=== PATIENT | male | born 1950 | race Caucasian/White ===

== ENCOUNTER 2025-08-01 09:55 | Inpatient (IN) ==
[2025-08-01] MEDS: SODIUM CHLORIDE 0.9% 500 ML IV ONE (10:51)
[2025-08-01 11:27] LABS: Alanine Aminotransferase 12.0 U/L (7-52); Albumin Globulin Ratio 1.0 (0.9-2); Albumin Level 4.2 gm/dl (3.4-5.0); Alkaline Phosphatase 119.0 U/L (34-104); Anion Gap 8.0 (3-11); Bilirubin,Total 0.4 mg/dl (0.2-1.0); Blood Urea Nitrogen 20.0 mg/dl (6-23); Calcium 9.4 mg/dl (8.6-10.3); Carbon Dioxide 23.0 mmol/L (21-32); Chloride 108.0 mmol/L (98-107); Creatinine Clr Calc Pharmacy 71.5 ml/min; Globulin 4.1 gm/dl (2.5-4.0); Glucose 87.0 mg/dl (70-99(Fasting)); Iron 18.0 mcg/dl (35-175); Lipase 39.0 U/L (11-82); Magnesium 2.1 mg/dl (1.7-2.4); Potassium 3.9 mmol/L (3.5-5.1); Sodium 139.0 mmol/L (136-145); Total Protein 8.3 gm/dl (6.0-8.3)
--- NOTE | 2025-08-01 11:28 | Emergency Department Note ---
Impression & Plan Iron deficiency anemia, Syncope, Dizziness ED Provider Note NAME: ARASH SALAZAR Jr AGE: 75 SEX: M : 1950 ARRIVES VIA: Walk-In INFORMANT: Patient ED PROVIDER(S): Conrad Ferreira MD CHIEF COMPLAINT: Low blood counts, referred PLAN: Disposition: Admit MEDICAL DECISION MAKING: The patient is a pleasant 75-year-old gentleman with a past medical history of hypertension, hyperlipidemia, GERD, Torres's esophagus who presents to the emergency department via walk-in referred by his outpatient [facility] clinic for anemia with a hemoglobin of 5.7 on an outpatient blood work yesterday. Patient has any bloody or black stool. Patient's testing was performed due to ongoing symptoms of generalized weakness and lightheadedness with episodes of syncope. Per records the patient also had been seen in March for similar symptoms and had outpatient lab work ordered as well as Zio patch and echocardiogram but the patient did not follow-up for these tests. Patient ports he has a chronic cough for years. On evaluation the patient is fatigued appearing but no distress, afebrile with stable vital signs. Abdomen is nontender. EKG without overt acute ischemia. CXR negative for acute cardiopulmonary process per my personal preliminary review/interpretation. WBC within normal limits. H/H 6.2/22.8 stable from outpatient values. Platelets 639, nonspecific. Chemistry without metabolic acidosis. BUN is not elevated. Iron continues to be low at 18. LFTs unremarkable. HS troponin 6.9, within normal limits. Lipase is normal. UA without evidence of infection. Patient did consent for blood transfusion. Given no history of anemia patient does agree with plan for admission for further assessment. Case was discussed with Isis Maher, [facility] PAC with Dr. Toussaint, [facility] hospitalist, who will evaluate the patient for admission. Further management per admitting team. Triage Nursing notes reviewed and agree them. Prior/external medical records reviewed Vital Signs: reviewed Differential diagnosis: Infection, dehydration, metabolic abnormality, hypo/hyperglycemia, electrolyte disturbance, anemia, hypoxia, cardiac sources, intracerebral event, toxicologic, neurologic, as well as other pathologies. ER treatment provided: See below. Diagnostics interpreted by me: ECG: Normal sinus rhythm with sinus arrhythmia, 79 bpm, no ectopy, no overt ST elevation or depression, QTc 444, QRS 100. Cardiac Monitoring: An order for continuous cardiac monitoring was placed and demonstrated normal sinus rhythm, sinus arrhythmia, 79 bpm, no ectopy. Laboratory studies: See below Imaging studies: See below Consultation(s): Case was discussed with Isis Maher, [facility] PAC with Dr. Toussaint, [facility] hospitalist, who will evaluate the patient for admission. HPI: Per MDM. ROS: See above HPI for pertinent positives & negatives. A total of 10 systems reviewed and were otherwise negative. VITALS:See Below PHYSICAL EXAMINATION: GENERAL: Awake, alert, in no distress HENT: Normocephalic, atraumatic. Oropharynx with dry mucous membranes and otherwise unremarkable. EYES: Normal conjunctiva. Sclera non-icteric. NECK: Supple. No nuchal rigidity. FROM. No JVD. RESPIRATORY: Clear to auscultation. CARDIAC: Regular rate, normal rhythm. Extremities warm and well perfused. Pulses equal. ABDOMEN: Soft, non-distended. No tenderness to palpation. No rebound or guarding. No masses. MUSCULOSKELETAL: Chest examination reveals no tenderness. The back is symmetrical on inspection without obvious abnormality. There is no CVA tenderness to palpation. No joint edema. LOWER EXTREMITIES: Calves are equal size bilaterally and non-tender. No edema. No discoloration. NEURO: Normal sensorium. No sensory or motor deficits noted. SKIN: No rash or jaundice noted. ED COURSE: Critical Care: I have personally spent greater than 35 minutes of critical care time in the direct management of this patient. This includes bedside care, interpretation of diagnostic studies, and testing, discussion with consultants, patient, and family members, and other required patient management activities. This 35 minutes is in excess of all separately billable procedures. 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 Prostate cancer (10/18/15) "DIAGNOSIS: Prostate, adenocarcinoma, lissett 3 + 4, PSA 10.15, cT1c, group IIA Volume - 36.74 cc PSAD - 0.27 Status post completion of radiation therapy 03/02/2016 received 8,100 cGy" On 11/18/15 10:43 Kellyberto Nina wrote "DIAGNOSIS: Prostate, adenocarcinoma, lissett 3 + 4, PSA 10.15, cT1c, group IIA Volume - 36.74 cc PSAD - 0.27" Surgical History (Updated 08/01/25 @ 13:22 by Anabelle Maher PA-C) History of inguinal hernia repair H/O rotator cuff surgery History of total left hip replacement Family History (Updated 08/01/25 @ 13:22 by Anabelle Maher PA-C) Other Hypertension Social History Smoking Status: Never smoker Second Hand Exposure: No; Do You Dip or Chew Tobacco: No; Tobacco Cessation Education Requested by Patient: No Hx Alcohol Use: No Hx Substance Use: No Preferred Language: Kiswahili Communication Ability: Effective Worm Farmer Required: No Beliefs That Will Affect Care: None Current Living Situation: Alone Other Information That Helps Us Care for You: No Feels Safe at Home: Yes Safety Concerns: Feels Safe At This Time Assistive Devices: Denture - Upper and Denture - Lower Allergies Allergies Allergy/AdvReac Type Severity Reaction Status Date / Time No Known Allergies Allergy Unverified 11/18/15 09:18 Home Meds Home Medications Medication Instructions Recorded Confirmed amlodipine 2.5 mg tablet 2.5 mg PO DAILY 08/01/25 08/01/25 aspirin 81 mg tablet,delayed 81 mg PO DAILY 08/01/25 08/01/25 release atorvastatin 20 mg tablet 20 mg PO DAILY 08/01/25 08/01/25 famotidine 20 mg tablet 20 mg PO DAILY 08/01/25 08/01/25 fexofenadine 180 mg tablet 180 mg PO DAILY 08/01/25 08/01/25 levothyroxine 88 mcg tablet 88 mcg PO DAILY 08/01/25 08/01/25 omeprazole 40 mg capsule,delayed 40 mg PO DAILY 08/01/25 08/01/25 release Results & Data (ED) Vital Signs Vital Signs - 24 hr 08/01/25 10:10 08/01/25 10:33 08/01/25 11:00 Temperature 36.6 C Temperature Source Temporal Artery Scan Pulse Rate 83 91 H 77 Pulse Rate from SpO2 Sensor 77 Respiratory Rate 18 23 Respiratory Effort / Characteristics Non-Labored Spontaneous Respiratory Depth Normal Respiratory Pattern Regular Blood Pressure 168/77 H 119/79 Blood Pressure Mean 107 92 Blood Pressure Position Sitting Pulse Oximetry 97 90 Oxygen Delivery Method Room Air Oxygen Flow Rate Sepsis Recent Fever Within 48 Hours No Sepsis New/Unexplained Change in Mental Status N/A Sepsis Action Taken by Nursing No Action Required 08/01/25 11:30 08/01/25 12:00 08/01/25 12:30 Temperature Temperature Source Pulse Rate 68 70 76 Pulse Rate from SpO2 Sensor 67 70 80 Respiratory Rate 24 17 26 H Respiratory Effort / Characteristics Respiratory Depth Respiratory Pattern Blood Pressure 143/81 H 156/86 H 155/101 H Blood Pressure Mean 101 109 119 Blood Pressure Position Pulse Oximetry 93 95 96 Oxygen Delivery Method Oxygen Flow Rate Sepsis Recent Fever Within 48 Hours Sepsis New/Unexplained Change in Mental Status Sepsis Action Taken by Nursing 08/01/25 13:00 08/01/25 13:12 08/01/25 13:16 Temperature 37 C Temperature Source Oral Pulse Rate 75 80 84 Pulse Rate from SpO2 Sensor 75 Respiratory Rate 17 25 H 20 Respiratory Effort / Characteristics Respiratory Depth Respiratory Pattern Blood Pressure 147/89 H 149/85 H 149/85 H Blood Pressure Mean 108 106 106 Blood Pressure Position Pulse Oximetry 91 96 Oxygen Delivery Method Oxygen Flow Rate 0 Sepsis Recent Fever Within 48 Hours Sepsis New/Unexplained Change in Mental Status Sepsis Action Taken by Nursing 08/01/25 13:18 08/01/25 13:30 08/01/25 13:30 Temperature Temperature Source Pulse Rate 70 Pulse Rate from SpO2 Sensor 67 Respiratory Rate 24 Respiratory Effort / Characteristics Respiratory Depth Respiratory Pattern Blood Pressure 142/79 H 142/79 H Blood Pressure Mean 108 108 Blood Pressure Position Pulse Oximetry 95 Oxygen Delivery Method Oxygen Flow Rate Sepsis Recent Fever Within 48 Hours Sepsis New/Unexplained Change in Mental Status Sepsis Action Taken by Nursing 08/01/25 13:30 08/01/25 13:30 08/01/25 13:30 Temperature Temperature Source Pulse Rate Pulse Rate from SpO2 Sensor Respiratory Rate Respiratory Effort / Characteristics Respiratory Depth Respiratory Pattern Blood Pressure 142/79 H 142/79 H 142/79 H Blood Pressure Mean 108 108 108 Blood Pressure Position Pulse Oximetry Oxygen Delivery Method Oxygen Flow Rate Sepsis Recent Fever Within 48 Hours Sepsis New/Unexplained Change in Mental Status Sepsis Action Taken by Nursing 08/01/25 13:30 08/01/25 13:33 08/01/25 13:45 Temperature 37.0 C Temperature Source Oral Pulse Rate 75 76 Pulse Rate from SpO2 Sensor 74 Respiratory Rate 22 18 Respiratory Effort / Characteristics Respiratory Depth Respiratory Pattern Blood Pressure 161/93 H Blood Pressure Mean 119 Blood Pressure Position Sitting Pulse Oximetry 92 92 Oxygen Delivery Method Oxygen Flow Rate Sepsis Recent Fever Within 48 Hours Sepsis New/Unexplained Change in Mental Status Sepsis Action Taken by Nursing 08/01/25 13:45 08/01/25 13:45 08/01/25 13:45 Temperature Temperature Source Pulse Rate Pulse Rate from SpO2 Sensor Respiratory Rate Respiratory Effort / Characteristics Respiratory Depth Respiratory Pattern Blood Pressure 161/93 H 161/93 H 161/93 H Blood Pressure Mean 119 119 119 Blood Pressure Position Pulse Oximetry Oxygen Delivery Method Oxygen Flow Rate Sepsis Recent Fever Within 48 Hours Sepsis New/Unexplained Change in Mental Status Sepsis Action Taken by Nursing 08/01/25 13:45 08/01/25 13:45 08/01/25 13:48 Temperature 36.9 C Temperature Source Oral Pulse Rate 75 75 Pulse Rate from SpO2 Sensor 76 Respiratory Rate 19 18 Respiratory Effort / Characteristics Respiratory Depth Respiratory Pattern Blood Pressure 161/93 H 161/93 H Blood Pressure Mean 119 115 Blood Pressure Position Lying Pulse Oximetry 98 97 Oxygen Delivery Method Oxygen Flow Rate Sepsis Recent Fever Within 48 Hours Sepsis New/Unexplained Change in Mental Status Sepsis Action Taken by Nursing 08/01/25 14:00 08/01/25 14:00 08/01/25 14:00 Temperature Temperature Source Pulse Rate Pulse Rate from SpO2 Sensor Respiratory Rate Respiratory Effort / Characteristics Respiratory Depth Respiratory Pattern Blood Pressure 153/87 H 153/87 H 153/87 H Blood Pressure Mean 103 103 103 Blood Pressure Position Pulse Oximetry Oxygen Delivery Method Oxygen Flow Rate Sepsis Recent Fever Within 48 Hours Sepsis New/Unexplained Change in Mental Status Sepsis Action Taken by Nursing 08/01/25 14:00 08/01/25 14:00 08/01/25 14:00 Temperature Temperature Source Pulse Rate 73 Pulse Rate from SpO2 Sensor 73 Respiratory Rate 29 H Respiratory Effort / Characteristics Respiratory Depth Respiratory Pattern Blood Pressure 153/87 H 153/87 H Blood Pressure Mean 103 103 Blood Pressure Position Pulse Oximetry 96 Oxygen Delivery Method Oxygen Flow Rate Sepsis Recent Fever Within 48 Hours Sepsis New/Unexplained Change in Mental Status Sepsis Action Taken by Nursing Laboratory Data Attestation: I reviewed the patient's lab results. 08/01/25 19:53 08/01/25 10:20 Lab Results 08/01/25 08/01/25 08/01/25 Range/Units 10:20 10:20 10:20 WBC 6.59 6.74 (4.8-10.8) K/ul RBC 3.39 L 3.34 L (4.70-6.10) M/uL Hgb 6.2 L* (14.0-18.0) g/dL Hct (42.0-52.0) % MCV (80.0-100.0) fL MCH (25.0-34.0) pg MCHC (32.0-36.0) g/dL RDW Std Deviation (36.4-46.3) fL RDW Coeff of Miguelangel (11.5-14.5) % Plt Count (130-400) K/uL MPV (9.4-12.4) fL Immature Gran % (Auto) % Neut % (Auto) % Lymph % (Auto) % [place] % (Auto) % Eos % (Auto) % Baso % (Auto) % Neut # (Auto) (1.40-6.50) K/uL Lymph # (Auto) (1.20-3.40) K/uL [place] # (Auto) (0.11-0.59) K/uL Eos # (Auto) (0.00-0.50) K/uL Baso # (Auto) (0.00-0.20) K/uL Immature Gran # (Auto) (0.01-0.20) K/uL Polychromasia Microcytosis PT (9.0-12.0) Seconds INR (0.9-1.1) Sodium (136-145) mmol/L Potassium (3.5-5.1) mmol/L Chloride (98-107) mmol/L Carbon Dioxide (21-32) mmol/L Anion Gap (3-11) BUN (6-23) mg/dl Creatinine (0.6-1.4) mg/dl Est Cr Clr Drug Dosing ml/min eGFR BUN/Creatinine Ratio (10-20) Glucose (70-99(Fasting)) mg/dl Calcium (8.6-10.3) mg/dl Magnesium (1.7-2.4) mg/dl Iron (35-175) mcg/dl Total Bilirubin (0.2-1.0) mg/dl AST (13-39) U/L ALT (7-52) U/L Alkaline Phosphatase (34-104) U/L Lactate Dehydrogenase (86-244) U/L Troponin I High Sens (0-20) pg/ml Total Protein (6.0-8.3) gm/dl Albumin (3.4-5.0) gm/dl Globulin (2.5-4.0) gm/dl Albumin/Globulin Ratio (0.9-2) Lipase (11-82) U/L Carcinoembryonic Ag (0-2.5) ng/ml Prostate Specific Ag (0-4) ng/ml Free PSA (0-2.0) ng/ml % Free PSA % Urine Color Urine Appearance (Clear) Urine pH (4.5-7.5) Ur Specific [place]asio (1.000-1.030) Urine Protein (Negative) Urine Glucose (UA) (Negative) Urine Ketones (Negative) Urine Blood (Negative) Urine Nitrite (Negative) Urine Bilirubin (Negative) Urine Urobilinogen (Negative) Ur Leukocyte Esterase (Negative) Urine Comment Blood Type Blood Type Recheck Antibody Screen Crossmatch 08/01/25 08/01/25 08/01/25 Range/Units 10:20 10:20 10:20 WBC (4.8-10.8) K/ul RBC (4.70-6.10) M/uL Hgb 6.0 L* (14.0-18.0) g/dL Hct 22.8 L 22.7 L (42.0-52.0) % MCV 67.3 L 68.0 L (80.0-100.0) fL MCH 18.3 L (25.0-34.0) pg MCHC (32.0-36.0) g/dL RDW Std Deviation (36.4-46.3) fL RDW Coeff of Miguelangel (11.5-14.5) % Plt Count (130-400) K/uL MPV (9.4-12.4) fL Immature Gran % (Auto) % Neut % (Auto) % Lymph % (Auto) % [place] % (Auto) % Eos % (Auto) % Baso % (Auto) % Neut # (Auto) (1.40-6.50) K/uL Lymph # (Auto) (1.20-3.40) K/uL [place] # (Auto) (0.11-0.59) K/uL Eos # (Auto) (0.00-0.50) K/uL Baso # (Auto) (0.00-0.20) K/uL Immature Gran # (Auto) (0.01-0.20) K/uL Polychromasia Microcytosis PT (9.0-12.0) Seconds INR (0.9-1.1) Sodium (136-145) mmol/L Potassium (3.5-5.1) mmol/L Chloride (98-107) mmol/L Carbon Dioxide (21-32) mmol/L Anion Gap (3-11) BUN (6-23) mg/dl Creatinine (0.6-1.4) mg/dl Est Cr Clr Drug Dosing ml/min eGFR BUN/Creatinine Ratio (10-20) Glucose (70-99(Fasting)) mg/dl Calcium (8.6-10.3) mg/dl Magnesium (1.7-2.4) mg/dl Iron (35-175) mcg/dl Total Bilirubin (0.2-1.0) mg/dl AST (13-39) U/L ALT (7-52) U/L Alkaline Phosphatase (34-104) U/L Lactate Dehydrogenase (86-244) U/L Troponin I High Sens (0-20) pg/ml Total Protein (6.0-8.3) gm/dl Albumin (3.4-5.0) gm/dl Globulin (2.5-4.0) gm/dl Albumin/Globulin Ratio (0.9-2) Lipase (11-82) U/L Carcinoembryonic Ag (0-2.5) ng/ml Prostate Specific Ag (0-4) ng/ml Free PSA (0-2.0) ng/ml % Free PSA % Urine Color Urine Appearance (Clear) Urine pH (4.5-7.5) Ur Specific [place] (1.000-1.030) Urine Protein (Negative) Urine Glucose (UA) (Negative) Urine Ketones (Negative) Urine Blood (Negative) Urine Nitrite (Negative) Urine Bilirubin (Negative) Urine Urobilinogen (Negative) Ur Leukocyte Esterase (Negative) Urine Comment Blood Type Blood Type Recheck Antibody Screen Crossmatch 08/01/25 08/01/25 08/01/25 Range/Units 10:20 10:20 10:20 WBC (4.8-10.8) K/ul RBC (4.70-6.10) M/uL Hgb (14.0-18.0) g/dL Hct (42.0-52.0) % MCV (80.0-100.0) fL MCH 18.0 L (25.0-34.0) pg MCHC 27.2 L 26.4 L (32.0-36.0) g/dL RDW Std Deviation 46.1 47.0 H (36.4-46.3) fL RDW Coeff of Miguelangel 19.4 H (11.5-14.5) % Plt Count (130-400) K/uL MPV (9.4-12.4) fL Immature Gran % (Auto) % Neut % (Auto) % Lymph % (Auto) % [place] % (Auto) % Eos % (Auto) % Baso % (Auto) % Neut # (Auto) (1.40-6.50) K/uL Lymph # (Auto) (1.20-3.40) K/uL [place] # (Auto) (0.11-0.59) K/uL Eos # (Auto) (0.00-0.50) K/uL Baso # (Auto) (0.00-0.20) K/uL Immature Gran # (Auto) (0.01-0.20) K/uL Polychromasia Microcytosis PT (9.0-12.0) Seconds INR (0.9-1.1) Sodium (136-145) mmol/L Potassium (3.5-5.1) mmol/L Chloride (98-107) mmol/L Carbon Dioxide (21-32) mmol/L Anion Gap (3-11) BUN (6-23) mg/dl Creatinine (0.6-1.4) mg/dl Est Cr Clr Drug Dosing ml/min eGFR BUN/Creatinine Ratio (10-20) Glucose (70-99(Fasting)) mg/dl Calcium (8.6-10.3) mg/dl Magnesium (1.7-2.4) mg/dl Iron (35-175) mcg/dl Total Bilirubin (0.2-1.0) mg/dl AST (13-39) U/L ALT (7-52) U/L Alkaline Phosphatase (34-104) U/L Lactate Dehydrogenase (86-244) U/L Troponin I High Sens (0-20) pg/ml Total Protein (6.0-8.3) gm/dl Albumin (3.4-5.0) gm/dl Globulin (2.5-4.0) gm/dl Albumin/Globulin Ratio (0.9-2) Lipase (11-82) U/L Carcinoembryonic Ag (0-2.5) ng/ml Prostate Specific Ag (0-4) ng/ml Free PSA (0-2.0) ng/ml % Free PSA % Urine Color Urine Appearance (Clear) Urine pH (4.5-7.5) Ur Specific [place] (1.000-1.030) Urine Protein (Negative) Urine Glucose (UA) (Negative) Urine Ketones (Negative) Urine Blood (Negative) Urine Nitrite (Negative) Urine Bilirubin (Negative) Urine Urobilinogen (Negative) Ur Leukocyte Esterase (Negative) Urine Comment Blood Type Blood Type Recheck Antibody Screen Crossmatch 08/01/25 08/01/25 08/01/25 Range/Units 10:20 10:20 10:20 WBC (4.8-10.8) K/ul RBC (4.70-6.10) M/uL Hgb (14.0-18.0) g/dL Hct (42.0-52.0) % MCV (80.0-100.0) fL MCH (25.0-34.0) pg MCHC (32.0-36.0) g/dL RDW Std Deviation (36.4-46.3) fL RDW Coeff of Miguelangel 19.6 H (11.5-14.5) % Plt Count 639 H 641 H (130-400) K/uL MPV 9.1 L 9.3 L (9.4-12.4) fL Immature Gran % (Auto) 0.5 % Neut % (Auto) % Lymph % (Auto) % [place] % (Auto) % Eos % (Auto) % Baso % (Auto) % Neut # (Auto) (1.40-6.50) K/uL Lymph # (Auto) (1.20-3.40) K/uL [place] # (Auto) (0.11-0.59) K/uL Eos # (Auto) (0.00-0.50) K/uL Baso # (Auto) (0.00-0.20) K/uL Immature Gran # (Auto) (0.01-0.20) K/uL Polychromasia Microcytosis PT (9.0-12.0) Seconds INR (0.9-1.1) Sodium (136-145) mmol/L Potassium (3.5-5.1) mmol/L Chloride (98-107) mmol/L Carbon Dioxide (21-32) mmol/L Anion Gap (3-11) BUN (6-23) mg/dl Creatinine (0.6-1.4) mg/dl Est Cr Clr Drug Dosing ml/min eGFR BUN/Creatinine Ratio (10-20) Glucose (70-99(Fasting)) mg/dl Calcium (8.6-10.3) mg/dl Magnesium (1.7-2.4) mg/dl Iron (35-175) mcg/dl Total Bilirubin (0.2-1.0) mg/dl AST (13-39) U/L ALT (7-52) U/L Alkaline Phosphatase (34-104) U/L Lactate Dehydrogenase (86-244) U/L Troponin I High Sens (0-20) pg/ml Total Protein (6.0-8.3) gm/dl Albumin (3.4-5.0) gm/dl Globulin (2.5-4.0) gm/dl Albumin/Globulin Ratio (0.9-2) Lipase (11-82) U/L Carcinoembryonic Ag (0-2.5) ng/ml Prostate Specific Ag (0-4) ng/ml Free PSA (0-2.0) ng/ml % Free PSA % Urine Color Urine Appearance (Clear) Urine pH (4.5-7.5) Ur Specific [place] (1.000-1.030) Urine Protein (Negative) Urine Glucose (UA) (Negative) Urine Ketones (Negative) Urine Blood (Negative) Urine Nitrite (Negative) Urine Bilirubin (Negative) Urine Urobilinogen (Negative) Ur Leukocyte Esterase (Negative) Urine Comment Blood Type Blood Type Recheck Antibody Screen Crossmatch 08/01/25 08/01/25 08/01/25 Range/Units 10:20 10:20 10:20 WBC (4.8-10.8) K/ul RBC (4.70-6.10) M/uL Hgb (14.0-18.0) g/dL Hct (42.0-52.0) % MCV (80.0-100.0) fL MCH (25.0-34.0) pg MCHC (32.0-36.0) g/dL RDW Std Deviation (36.4-46.3) fL RDW Coeff of Miguelangel (11.5-14.5) % Plt Count (130-400) K/uL MPV (9.4-12.4) fL Immature Gran % (Auto) 0.3 % Neut % (Auto) 56.7 54.7 % Lymph % (Auto) 18.5 19.7 % [place] % (Auto) 19.6 % Eos % (Auto) % Baso % (Auto) % Neut # (Auto) (1.40-6.50) K/uL Lymph # (Auto) (1.20-3.40) K/uL [place] # (Auto) (0.11-0.59) K/uL Eos # (Auto) (0.00-0.50) K/uL Baso # (Auto) (0.00-0.20) K/uL Immature Gran # (Auto) (0.01-0.20) K/uL Polychromasia Microcytosis PT (9.0-12.0) Seconds INR (0.9-1.1) Sodium (136-145) mmol/L Potassium (3.5-5.1) mmol/L Chloride (98-107) mmol/L Carbon Dioxide (21-32) mmol/L Anion Gap (3-11) BUN (6-23) mg/dl Creatinine (0.6-1.4) mg/dl Est Cr Clr Drug Dosing ml/min eGFR BUN/Creatinine Ratio (10-20) Glucose (70-99(Fasting)) mg/dl Calcium (8.6-10.3) mg/dl Magnesium (1.7-2.4) mg/dl Iron (35-175) mcg/dl Total Bilirubin (0.2-1.0) mg/dl AST (13-39) U/L ALT (7-52) U/L Alkaline Phosphatase (34-104) U/L Lactate Dehydrogenase (86-244) U/L Troponin I High Sens (0-20) pg/ml Total Protein (6.0-8.3) gm/dl Albumin (3.4-5.0) gm/dl Globulin (2.5-4.0) gm/dl Albumin/Globulin Ratio (0.9-2) Lipase (11-82) U/L Carcinoembryonic Ag (0-2.5) ng/ml Prostate Specific Ag (0-4) ng/ml Free PSA (0-2.0) ng/ml % Free PSA % Urine Color Urine Appearance (Clear) Urine pH (4.5-7.5) Ur Specific [place]asio (1.000-1.030) Urine Protein (Negative) Urine Glucose (UA) (Negative) Urine Ketones (Negative) Urine Blood (Negative) Urine Nitrite (Negative) Urine Bilirubin (Negative) Urine Urobilinogen (Negative) Ur Leukocyte Esterase (Negative) Urine Comment Blood Type Blood Type Recheck Antibody Screen Crossmatch 08/01/25 08/01/25 08/01/25 Range/Units 10:20 10:20 10:20 WBC (4.8-10.8) K/ul RBC (4.70-6.10) M/uL Hgb (14.0-18.0) g/dL Hct (42.0-52.0) % MCV (80.0-100.0) fL MCH (25.0-34.0) pg MCHC (32.0-36.0) g/dL RDW Std Deviation (36.4-46.3) fL RDW Coeff of Miguelangel (11.5-14.5) % Plt Count (130-400) K/uL MPV (9.4-12.4) fL Immature Gran % (Auto) % Neut % (Auto) % Lymph % (Auto) % [place] % (Auto) 20.5 % Eos % (Auto) 3.8 3.6 % Baso % (Auto) 0.9 1.2 % Neut # (Auto) 3.74 (1.40-6.50) K/uL Lymph # (Auto) (1.20-3.40) K/uL [place] # (Auto) (0.11-0.59) K/uL Eos # (Auto) (0.00-0.50) K/uL Baso # (Auto) (0.00-0.20) K/uL Immature Gran # (Auto) (0.01-0.20) K/uL Polychromasia Microcytosis PT (9.0-12.0) Seconds INR (0.9-1.1) Sodium (136-145) mmol/L Potassium (3.5-5.1) mmol/L Chloride (98-107) mmol/L Carbon Dioxide (21-32) mmol/L Anion Gap (3-11) BUN (6-23) mg/dl Creatinine (0.6-1.4) mg/dl Est Cr Clr Drug Dosing ml/min eGFR BUN/Creatinine Ratio (10-20) Glucose (70-99(Fasting)) mg/dl Calcium (8.6-10.3) mg/dl Magnesium (1.7-2.4) mg/dl Iron (35-175) mcg/dl Total Bilirubin (0.2-1.0) mg/dl AST (13-39) U/L ALT (7-52) U/L Alkaline Phosphatase (34-104) U/L Lactate Dehydrogenase (86-244) U/L Troponin I High Sens (0-20) pg/ml Total Protein (6.0-8.3) gm/dl Albumin (3.4-5.0) gm/dl Globulin (2.5-4.0) gm/dl Albumin/Globulin Ratio (0.9-2) Lipase (11-82) U/L Carcinoembryonic Ag (0-2.5) ng/ml Prostate Specific Ag (0-4) ng/ml Free PSA (0-2.0) ng/ml % Free PSA % Urine Color Urine Appearance (Clear) Urine pH (4.5-7.5) Ur Specific [place] (1.000-1.030) Urine Protein (Negative) Urine Glucose (UA) (Negative) Urine Ketones (Negative) Urine Blood (Negative) Urine Nitrite (Negative) Urine Bilirubin (Negative) Urine Urobilinogen (Negative) Ur Leukocyte Esterase (Negative) Urine Comment Blood Type Blood Type Recheck Antibody Screen Crossmatch 08/01/25 08/01/25 08/01/25 Range/Units 10:20 10:20 10:20 WBC (4.8-10.8) K/ul RBC (4.70-6.10) M/uL Hgb (14.0-18.0) g/dL Hct (42.0-52.0) % MCV (80.0-100.0) fL MCH (25.0-34.0) pg MCHC (32.0-36.0) g/dL RDW Std Deviation (36.4-46.3) fL RDW Coeff of Miguelangel (11.5-14.5) % Plt Count (130-400) K/uL MPV (9.4-12.4) fL Immature Gran % (Auto) % Neut % (Auto) % Lymph % (Auto) % [place] % (Auto) % Eos % (Auto) % Baso % (Auto) % Neut # (Auto) 3.69 (1.40-6.50) K/uL Lymph # (Auto) 1.22 1.33 (1.20-3.40) K/uL [place] # (Auto) 1.29 H 1.38 H (0.11-0.59) K/uL Eos # (Auto) 0.25 (0.00-0.50) K/uL Baso # (Auto) (0.00-0.20) K/uL Immature Gran # (Auto) (0.01-0.20) K/uL Polychromasia Microcytosis PT (9.0-12.0) Seconds INR (0.9-1.1) Sodium (136-145) mmol/L Potassium (3.5-5.1) mmol/L Chloride (98-107) mmol/L Carbon Dioxide (21-32) mmol/L Anion Gap (3-11) BUN (6-23) mg/dl Creatinine (0.6-1.4) mg/dl Est Cr Clr Drug Dosing ml/min eGFR BUN/Creatinine Ratio (10-20) Glucose (70-99(Fasting)) mg/dl Calcium (8.6-10.3) mg/dl Magnesium (1.7-2.4) mg/dl Iron (35-175) mcg/dl Total Bilirubin (0.2-1.0) mg/dl AST (13-39) U/L ALT (7-52) U/L Alkaline Phosphatase (34-104) U/L Lactate Dehydrogenase (86-244) U/L Troponin I High Sens (0-20) pg/ml Total Protein (6.0-8.3) gm/dl Albumin (3.4-5.0) gm/dl Globulin (2.5-4.0) gm/dl Albumin/Globulin Ratio (0.9-2) Lipase (11-82) U/L Carcinoembryonic Ag (0-2.5) ng/ml Prostate Specific Ag (0-4) ng/ml Free PSA (0-2.0) ng/ml % Free PSA % Urine Color Urine Appearance (Clear) Urine pH (4.5-7.5) Ur Specific [place] (1.000-1.030) Urine Protein (Negative) Urine Glucose (UA) (Negative) Urine Ketones (Negative) Urine Blood (Negative) Urine Nitrite (Negative) Urine Bilirubin (Negative) Urine Urobilinogen (Negative) Ur Leukocyte Esterase (Negative) Urine Comment Blood Type Blood Type Recheck Antibody Screen Crossmatch 08/01/25 08/01/25 08/01/25 Range/Units 10:20 10:20 10:20 WBC (4.8-10.8) K/ul RBC (4.70-6.10) M/uL Hgb (14.0-18.0) g/dL Hct (42.0-52.0) % MCV (80.0-100.0) fL MCH (25.0-34.0) pg MCHC (32.0-36.0) g/dL RDW Std Deviation (36.4-46.3) fL RDW Coeff of Miguelangel (11.5-14.5) % Plt Count (130-400) K/uL MPV (9.4-12.4) fL Immature Gran % (Auto) % Neut % (Auto) % Lymph % (Auto) % [place] % (Auto) % Eos % (Auto) % Baso % (Auto) % Neut # (Auto) (1.40-6.50) K/uL Lymph # (Auto) (1.20-3.40) K/uL [place] # (Auto) (0.11-0.59) K/uL Eos # (Auto) 0.24 (0.00-0.50) K/uL Baso # (Auto) 0.06 0.08 (0.00-0.20) K/uL Immature Gran # (Auto) 0.03 0.02 (0.01-0.20) K/uL Polychromasia 1+ Microcytosis PT (9.0-12.0) Seconds INR (0.9-1.1) Sodium (136-145) mmol/L Potassium (3.5-5.1) mmol/L Chloride (98-107) mmol/L Carbon Dioxide (21-32) mmol/L Anion Gap (3-11) BUN (6-23) mg/dl Creatinine (0.6-1.4) mg/dl Est Cr Clr Drug Dosing ml/min eGFR BUN/Creatinine Ratio (10-20) Glucose (70-99(Fasting)) mg/dl Calcium (8.6-10.3) mg/dl Magnesium (1.7-2.4) mg/dl Iron (35-175) mcg/dl Total Bilirubin (0.2-1.0) mg/dl AST (13-39) U/L ALT (7-52) U/L Alkaline Phosphatase (34-104) U/L Lactate Dehydrogenase (86-244) U/L Troponin I High Sens (0-20) pg/ml Total Protein (6.0-8.3) gm/dl Albumin (3.4-5.0) gm/dl Globulin (2.5-4.0) gm/dl Albumin/Globulin Ratio (0.9-2) Lipase (11-82) U/L Carcinoembryonic Ag (0-2.5) ng/ml Prostate Specific Ag (0-4) ng/ml Free PSA (0-2.0) ng/ml % Free PSA % Urine Color Urine Appearance (Clear) Urine pH (4.5-7.5) Ur Specific [place] (1.000-1.030) Urine Protein (Negative) Urine Glucose (UA) (Negative) Urine Ketones (Negative) Urine Blood (Negative) Urine Nitrite (Negative) Urine Bilirubin (Negative) Urine Urobilinogen (Negative) Ur Leukocyte Esterase (Negative) Urine Comment Blood Type Blood Type Recheck Antibody Screen Crossmatch 12/20/25 12/20/25 12/20/25 Range/Units 10:20 10:20 10:53 WBC (4.8-10.8) K/ul RBC (4.70-6.10) M/uL Hgb (14.0-18.0) g/dL Hct (42.0-52.0) % MCV (80.0-100.0) fL MCH (25.0-34.0) pg MCHC (32.0-36.0) g/dL RDW Std Deviation (36.4-46.3) fL RDW Coeff of Miguelangel (11.5-14.5) % Plt Count (130-400) K/uL MPV (9.4-12.4) fL Immature Gran % (Auto) % Neut % (Auto) % Lymph % (Auto) % [place] % (Auto) % Eos % (Auto) % Baso % (Auto) % Neut # (Auto) (1.40-6.50) K/uL Lymph # (Auto) (1.20-3.40) K/uL [place] # (Auto) (0.11-0.59) K/uL Eos # (Auto) (0.00-0.50) K/uL Baso # (Auto) (0.00-0.20) K/uL Immature Gran # (Auto) (0.01-0.20) K/uL Polychromasia 1+ Microcytosis Present Present PT 10.9 (9.0-12.0) Seconds INR 1.0 (0.9-1.1) Sodium 139 (136-145) mmol/L Potassium 3.9 (3.5-5.1) mmol/L Chloride 108 H (98-107) mmol/L Carbon Dioxide 23 (21-32) mmol/L Anion Gap 8 (3-11) BUN 20 (6-23) mg/dl Creatinine 0.95 (0.6-1.4) mg/dl Est Cr Clr Drug Dosing 71.5 ml/min eGFR 84.52 BUN/Creatinine Ratio 21.1 H (10-20) Glucose 87 (70-99(Fasting)) mg/dl Calcium 9.4 (8.6-10.3) mg/dl Magnesium 2.1 (1.7-2.4) mg/dl Iron 18 L (35-175) mcg/dl Total Bilirubin 0.4 (0.2-1.0) mg/dl AST 14 (13-39) U/L ALT 12 (7-52) U/L Alkaline Phosphatase 119 H (34-104) U/L Lactate Dehydrogenase 157 (86-244) U/L Troponin I High Sens 6.9 (0-20) pg/ml Total Protein 8.3 (6.0-8.3) gm/dl Albumin 4.2 (3.4-5.0) gm/dl Globulin 4.1 H (2.5-4.0) gm/dl Albumin/Globulin Ratio 1.0 (0.9-2) Lipase 39 (11-82) U/L Carcinoembryonic Ag (0-2.5) ng/ml Prostate Specific Ag 0.392 (0-4) ng/ml Free PSA 0.03 (0-2.0) ng/ml % Free PSA 7.7 % Urine Color Urine Appearance (Clear) Urine pH (4.5-7.5) Ur Specific [place] (1.000-1.030) Urine Protein (Negative) Urine Glucose (UA) (Negative) Urine Ketones (Negative) Urine Blood (Negative) Urine Nitrite (Negative) Urine Bilirubin (Negative) Urine Urobilinogen (Negative) Ur Leukocyte Esterase (Negative) Urine Comment Blood Type O Negative Blood Type Recheck Antibody Screen NEGATIVE Crossmatch See Detail 08/01/25 08/01/25 08/01/25 Range/Units 10:54 11:35 11:50 WBC (4.8-10.8) K/ul RBC (4.70-6.10) M/uL Hgb (14.0-18.0) g/dL Hct (42.0-52.0) % MCV (80.0-100.0) fL MCH (25.0-34.0) pg MCHC (32.0-36.0) g/dL RDW Std Deviation (36.4-46.3) fL RDW Coeff of Miguelangel (11.5-14.5) % Plt Count (130-400) K/uL MPV (9.4-12.4) fL Immature Gran % (Auto) % Neut % (Auto) % Lymph % (Auto) % [place] % (Auto) % Eos % (Auto) % Baso % (Auto) % Neut # (Auto) (1.40-6.50) K/uL Lymph # (Auto) (1.20-3.40) K/uL [place] # (Auto) (0.11-0.59) K/uL Eos # (Auto) (0.00-0.50) K/uL Baso # (Auto) (0.00-0.20) K/uL Immature Gran # (Auto) (0.01-0.20) K/uL Polychromasia Microcytosis PT (9.0-12.0) Seconds INR (0.9-1.1) Sodium (136-145) mmol/L Potassium (3.5-5.1) mmol/L Chloride (98-107) mmol/L Carbon Dioxide (21-32) mmol/L Anion Gap (3-11) BUN (6-23) mg/dl Creatinine (0.6-1.4) mg/dl Est Cr Clr Drug Dosing ml/min eGFR BUN/Creatinine Ratio (10-20) Glucose (70-99(Fasting)) mg/dl Calcium (8.6-10.3) mg/dl Magnesium (1.7-2.4) mg/dl Iron (35-175) mcg/dl Total Bilirubin (0.2-1.0) mg/dl AST (13-39) U/L ALT (7-52) U/L Alkaline Phosphatase (34-104) U/L Lactate Dehydrogenase (86-244) U/L Troponin I High Sens (0-20) pg/ml Total Protein (6.0-8.3) gm/dl Albumin (3.4-5.0) gm/dl Globulin (2.5-4.0) gm/dl Albumin/Globulin Ratio (0.9-2) Lipase (11-82) U/L Carcinoembryonic Ag 3.1 H (0-2.5) ng/ml Prostate Specific Ag (0-4) ng/ml Free PSA (0-2.0) ng/ml % Free PSA % Urine Color Yellow Urine Appearance Clear (Clear) Urine pH 6.5 (4.5-7.5) Ur Specific [place] 1.018 (1.000-1.030) Urine Protein Negative (Negative) Urine Glucose (UA) Negative (Negative) Urine Ketones Negative (Negative) Urine Blood Negative (Negative) Urine Nitrite Negative (Negative) Urine Bilirubin Negative (Negative) Urine Urobilinogen Negative (Negative) Ur Leukocyte Esterase Negative (Negative) Urine Comment Blood Type Blood Type Recheck O Negative Antibody Screen Crossmatch Administered Medications Discontinued Medications Acetaminophen (Acetaminophen 325 Mg Tab) 650 mg PO NOW ONE Stop: 08/01/25 20:56 Last Admin: 08/01/25 21:55 Dose: 650 mg Documented By: DEL Furosemide (Furosemide Inj 20 Mg/2 Ml Vial) 20 mg IV ONE ONE Stop: 08/01/25 23:16 Last Admin: 08/01/25 23:29 Dose: 20 mg Documented By: DEL Sodium Chloride (Nss) 500 mls @ 999 mls/hr IV .Q31M ONE Stop: 08/01/25 11:16 Last Infusion: 08/01/25 11:34 Dose: Infused Documented By: Admin: 08/01/25 10:51 Dose: 999 mls/hr Documented By: LEX Ioversol (Optiray 320 100ml) 90 ml IV ONCE ONE Stop: 08/01/25 14:40 Last Admin: 08/01/25 14:39 Dose: 90 ml Documented By: XUAN Imaging Data Radiologist's Impression: Chest X-Ray 08/01/25 10:45 Clinical History: Cough and chest pain Technique: 2 frontal views of the chest were obtained Findings: There are no confluent pulmonary infiltrates. The heart size is within normal limits. No pleural effusion or pneumothorax is seen. There is no definite pulmonary nodule. No fracture is noted. No foreign body is seen Impression: No active disease Electronically signed by Nehemiah Thomas 08-01-2025 11:39 AM Abdomen/Pelvis CT 08/01/25 14:03 EXAMINATION: CT of the chest, abdomen and pelvis performed after the administration of IV contrast TECHNIQUE: Helical CT images from the lung apices through the symphysis pubis were obtained with contrast. Coronal and sagittal reformatted images were generated at a workstation for further assessment. Dose reduction techniques were achieved by using automatic exposure control and/or adjustment of mA and/or kV according to patient size and/or use of iterative reconstruction technique. COMPARISON: None HISTORY: Anemia FINDINGS: Lines and tubes: None Mediastinum/Neck Base: No thyroid nodules. Central tracheobronchial tree is patent. Heart size is normal. No pericardial effusion. Normal thoracic vasculature. No thoracic lymphadenopathy. Lungs: No consolidation. No pleural effusion or pneumothorax. There is an isolated cyst in the anteromedial right upper lobe. Calcified granuloma in the left lower lobe. Liver: A few tiny low-density foci in the liver, are nonspecific. Portal veins appear patent. Gallbladder: No gallstones. No evidence of acute cholecystitis. Spleen: Normal size. Pancreas: No suspicious pancreatic lesions. The pancreatic duct is not dilated. Adrenal glands: No adrenal nodules. Kidneys: No hydronephrosis or obstructing renal stones. Bladder / Pelvic organs: Brachytherapy beads in the prostate gland. The prostate gland does not appear significantly enlarged. The urinary bladder is unremarkable. Evaluation of the pelvis somewhat limited due to streak artifact from the left hip arthroplasty.. Bowel: No bowel obstruction. No abnormal bowel wall thickening. The appendix is not definitely seen. Lymph nodes: No retroperitoneal, mesenteric, or pelvic lymphadenopathy. Peritoneum / Retroperitoneum: No free fluid or air within the abdomen. Vessels: No infrarenal aortic aneurysm. Mild aortoiliac calcification. Bones and soft tissues: Degenerative changes of the spine. No acute osseous normality. A 4 mm sclerotic density in the right iliac bone, series 3 image 53. 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 Severe L5-S1 degenerative disc height loss. Moderate to severe L4-5 degenerative disc height loss. IMPRESSION: No acute finding in the chest, abdomen or pelvis, or finding to specifically explain patient's symptoms. Right iliac bone 4 mm sclerotic density, is indeterminate. Early metastatic disease not excluded. A few tiny low-density foci in the liver, are nonspecific, however which favor cysts. Attention on follow-up. This could also be evaluated with MRI if indicated. Electronically signed by Amari Sims 08-01-2025 5:[address] 08/01/25 14:03 EXAMINATION: CT of the chest, abdomen and pelvis performed after the administration of IV contrast TECHNIQUE: Helical CT images from the lung apices through the symphysis pubis were obtained with contrast. Coronal and sagittal reformatted images were generated at a workstation for further assessment. Dose reduction techniques were achieved by using automatic exposure control and/or adjustment of mA and/or kV according to patient size and/or use of iterative reconstruction technique. COMPARISON: None HISTORY: Anemia FINDINGS: Lines and tubes: None Mediastinum/Neck Base: No thyroid nodules. Central tracheobronchial tree is patent. Heart size is normal. No pericardial effusion. Normal thoracic vasculature. No thoracic lymphadenopathy. Lungs: No consolidation. No pleural effusion or pneumothorax. There is an isolated cyst in the anteromedial right upper lobe. Calcified granuloma in the left lower lobe. Liver: A few tiny low-density foci in the liver, are nonspecific. Portal veins appear patent. Gallbladder: No gallstones. No evidence of acute cholecystitis. Spleen: Normal size. Pancreas: No suspicious pancreatic lesions. The pancreatic duct is not dilated. Adrenal glands: No adrenal nodules. Kidneys: No hydronephrosis or obstructing renal stones. Bladder / Pelvic organs: Brachytherapy beads in the prostate gland. The prostate gland does not appear significantly enlarged. The urinary bladder is unremarkable. Evaluation of the pelvis somewhat limited due to streak artifact from the left hip arthroplasty.. Bowel: No bowel obstruction. No abnormal bowel wall thickening. The appendix is not definitely seen. Lymph nodes: No retroperitoneal, mesenteric, or pelvic lymphadenopathy. Peritoneum / Retroperitoneum: No free fluid or air within the abdomen. Vessels: No infrarenal aortic aneurysm. Mild aortoiliac calcification. Bones and soft tissues: Degenerative changes of the spine. No acute osseous normality. A 4 mm sclerotic density in the right iliac bone, series 3 image 53. 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 Severe L5-S1 degenerative disc height loss. Moderate to severe L4-5 degenerative disc height loss. IMPRESSION: No acute finding in the chest, abdomen or pelvis, or finding to specifically explain patient's symptoms. Right iliac bone 4 mm sclerotic density, is indeterminate. Early metastatic disease not excluded. A few tiny low-density foci in the liver, are nonspecific, however which favor cysts. Attention on follow-up. This could also be evaluated with MRI if indicated. Electronically signed by Amari Sims 08-01-2025 5:34 PM Discharge Plan Visit Data Chief Complaint: Referred by Doctor Stated Complaint: REF BY DOC, NEEDS INFUSION ED Provider: Conrad Ferreira Discharge Problem: Iron deficiency anemia, Syncope, Dizziness Patient Disposition: Admitted As Inpatient Condition: Fair Discharge Instructions Interventions: ED Discharge Assessment Last Done: 08/01/25 16:44 Discharge Problem: Iron deficiency anemia Qualifiers: Iron deficiency anemia type: unspecified iron deficiency Qualified Code(s): D 50.9 - Iron deficiency anemia, unspecified Syncope Qualifiers: Syncope type: unspecified Qualified Code(s): R55 - Syncope and collapse
[2025-08-01 11:32] LABS: Hematocrit (blood only) 22.8 % (42.0-52.0); Hemoglobin 6.2 g/dL (14.0-18.0); Mean Corpuscular Hemoglobin 18.3 pg (25.0-34.0); Mean Corpuscular Volume 67.3 fL (80.0-100.0); Platelet Count 639 K/uL (130-400); RDW Standard Deviation 46.1 fL (36.4-46.3); Red Blood Count 3.39 M/uL (4.70-6.10); White Blood Count 6.59 K/ul (4.8-10.8)
--- NOTE | 2025-08-01 11:39 | XRay Report ---
Clinical History: Cough and chest pain Technique: 2 frontal views of the chest were obtained Findings: There are no confluent pulmonary infiltrates. The heart size is within normal limits. No pleural effusion or pneumothorax is seen. There is no definite pulmonary nodule. No fracture is noted. No foreign body is seen Impression: No active disease Electronically signed by Nehemiah Thomas 08-01-2025 11:39 AM
[2025-08-01 11:42] LABS: Immature Granulocytes # (auto) 0.03 K/uL (0.01-0.20); Immature Granulocytes % (auto) 0.5 %; Microcytosis Present; Polychromasia 1+
[2025-08-01] MEDS ORDERED: SODIUM CHLORIDE 0.9% 100 ML IV PRN ×2 (11:42→20:54)
[2025-08-01 11:45] LABS: INR 1.0 (0.9-1.1); Prothrombin Time 10.9 Seconds (9.0-12.0)
[2025-08-01 12:06] LABS: Appearance Urine Clear (Clear); Glucose Urine UA Negative (Negative)
--- NOTE | 2025-08-01 13:19 | History & Physical Report ---
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 In the ED, H&H was 6.0/22.7, MCV 68, globulin minimally elevated at 4.1, alk phos mildly elevated at 119, iron low at 18. He was referred for admission for further work-up of new anemia and transfusion of PRBCs. #New severe iron deficiency anemia - symptomatic #Syncopal events Anemia is microcytic with evidence of iron deficiency on labs. His outpatient labs were reviewed including CBCs for the last five years. His hemoglobin on those labs was always above 12 and his MCV was typically in the 90s. No prior severe anemia or microcytosis noted. He notes a change in chronic cough over the last few months as well as new nocturia. History of prostate ca s/p radiation seed implants, successfully treated. - Admit to med telemetry - CT chest/abdomen/pelvis - evaluate for possible occult malignancy - SPEP, LDH, PSA, CEA, kappa lambda chains, peripheral smear - Transfusion ordered by the ED - will need to monitor for stability post- transfusion - Consult GI - consider EGD/colonoscopy as part of work-up - ECHO - Hold aspirin for now - Continue PPI/famotidine for history of GERD and Torres's esophagus #Hypertension - Hold amlodipine for now due to episodes of syncope, symptomatic anemia - Monitor BP closely #Prediabetes - A1c on 07/31/25 was 6.2 #Hypothyroidism - Chronic, stable - continue leveothyroxine #Hypercholesterolemia - Chronic, stable - continue statin Pt seen and reviewed with collaborating physician, Dr. Toussaint. Plan of care discussed and as outlined above. Code status: full code DVT prophylaxis: SCDs in view of severe anemia of unclear etiology Burton Maher PA-C History of Present Illness Chief Complaint: abnormal labs Primary Care Provider: Armando Tinoco MD This is a 75 y/o male with hx of prostate cancer, HTN, prediabetes, pure hypercholesterolemia, hypothyroidism, and other history as outlined below who presented to the ED today after outpatient labs revealed profound anemia with an outpatient hemoglobin of 5.7. Pt was originially seen in March 2025 for two episodes of near-syncope. Provider ordered labs, ZIO, ECHO but it appears only the ZIO was done, which showed predominantly sinus rhythm with a few runs of SVT. Pt declined cardio eval at the time. Seen again on 07/17/25 for ongoing intermittent dizziness, at which labs were ordered which patient finally had done yesterday. Pt denies a prior history of anemia or prior blood transfusion. He describes increasing frequency of dizziness with additional syncopal episodes at home. He notes new and progressive dyspnea on exertion, now gets short of breath walking up the stairs. He feels generally weak and tired all the time. His appetite is fair but this is unchanged from baseline, typically only eats on e meal a day (dinner) which he goes out to eat for. During the day, he snacks, usually on Ritz crackers. He denies dysphagia, N/V, change in bowel habits, melena or hematochezia. He denies chest pain, palpitations, or peripheral edema. He notes a chronic cough for the last five years for which he has been seen outpatient, diagnosed with allergies. However, cough has worsened over the last few months, becoming more severe and productive at times. 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 Colonoscopy 12/21/22 - fair preparation, normal examined colon on direct and retroflexion views EGD 12/21/22 - normal esophagus, no stricture; small hiatal hernia, multiple gastric benign fundic gland polyps, normal examined duodenum Allergies Allergy/AdvReac Type Severity Reaction Status Date / Time No Known Allergies Allergy Unverified 11/18/15 09:18 Home Medications Medication Instructions Recorded Confirmed Type amlodipine 2.5 mg tablet 2.5 mg PO DAILY 08/01/25 08/01/25 History aspirin 81 mg tablet,delayed 81 mg PO DAILY 08/01/25 08/01/25 History release atorvastatin 20 mg tablet 20 mg PO DAILY 08/01/25 08/01/25 History famotidine 20 mg tablet 20 mg PO DAILY 08/01/25 08/01/25 History fexofenadine 180 mg tablet 180 mg PO DAILY 08/01/25 08/01/25 History levothyroxine 88 mcg tablet 88 mcg PO DAILY 08/01/25 08/01/25 History omeprazole 40 mg capsule,delayed 40 mg PO DAILY 08/01/25 08/01/25 History release Past Med/Surg History Problem List (Updated 08/01/25 @ 16:27 by Anabelle Maher PA-C) Syncope Iron deficiency anemia Medical History (Updated 08/01/25 @ 16:27 by Anabelle Maher PA-C) Acquired hypothyroidism 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 GERD without esophagitis Essential hypertension Peripheral polyneuropathy Prediabetes Pure hypercholesterolemia RLS (restless legs syndrome) 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 Prostate cancer (10/18/15) "DIAGNOSIS: Prostate, adenocarcinoma, lissett 3 + 4, PSA 10.15, cT1c, group IIA Volume - 36.74 cc PSAD - 0.27 Status post completion of radiation therapy 03/02/2016 received 8,100 cGy" On 11/18/15 10:43 Glen Nina wrote "DIAGNOSIS: Prostate, adenocarcinoma, lissett 3 + 4, PSA 10.15, cT1c, group IIA Volume - 36.74 cc PSAD - 0.27" Surgical History (Updated 08/01/25 @ 13:22 by Anabelle Maher PA-C) History of inguinal hernia repair H/O rotator cuff surgery History of total left hip replacement Family History (Updated 08/01/25 @ 13:22 by Anabelle Maher PA-C) Other Hypertension Social History Smoking Status: Never smoker Preferred Language: Romanian Feels Safe at Home: Yes Review of Systems Review of Systems: All systems reviewed & are unremarkable except as noted in Subjective Physical Exam Physical Exam: General: awake, alert, NAD HEENT: no scleral icterus, moist oral mucosa Neck: supple, trachea midline Heart: RRR Lungs: CTA bilaterally, no W/R/R Abdomen: soft, NT, +BS Extremities: radial pulses 2+ and equal, capillary refill 3 seconds Skin: warm, dry, mild pallor Neurologic: Ox3, no confusion or dysarthria, moving all extremities, no focal deficits Results & Data Results & Data Vital Signs (Past 12 Hours) Vital Signs Temp Pulse Resp BP Pulse Ox O2 Del Method 08/01/25 11:00 77 23 119/79 90 08/01/25 10:33 91 H 08/01/25 10:10 36.6 C 83 18 168/77 H 97 Room Air Laboratory Results Laboratory Results - last 24 hr 08/01/25 08/01/25 08/01/25 10:20 10:53 11:35 WBC 6.59 RBC 3.39 L Hgb 6.2 L* Hct 22.8 L MCV 67.3 L MCH 18.3 L MCHC 27.2 L RDW Std Deviation 46.1 RDW Coeff of Miguelangel 19.4 H Plt Count 639 H MPV 9.1 L Immature Gran % (Auto) 0.5 Neut % (Auto) 56.7 Lymph % (Auto) 18.5 [place] % (Auto) 19.6 Eos % (Auto) 3.8 Baso % (Auto) 0.9 Neut # (Auto) 3.74 Lymph # (Auto) 1.22 [place] # (Auto) 1.29 H Eos # (Auto) 0.25 Baso # (Auto) 0.06 Immature Gran # (Auto) 0.03 Polychromasia 1+ Microcytosis Present PT 10.9 INR 1.0 Sodium 139 Potassium 3.9 Chloride 108 H Carbon Dioxide 23 Anion Gap 8 BUN 20 Creatinine 0.95 Est Cr Clr Drug Dosing 71.5 eGFR 84.52 BUN/Creatinine Ratio 21.1 H Glucose 87 Calcium 9.4 Magnesium 2.1 Iron 18 L Total Bilirubin 0.4 AST 14 ALT 12 Alkaline Phosphatase 119 H Troponin I High Sens 6.9 Total Protein 8.3 Albumin 4.2 Globulin 4.1 H Albumin/Globulin Ratio 1.0 Lipase 39 Urine Color Urine Appearance Urine pH Ur Specific [place] Urine Protein Urine Glucose (UA) Urine Ketones Urine Blood Urine Nitrite Urine Bilirubin Urine Urobilinogen Ur Leukocyte Esterase Urine Comment Blood Type O Negative Blood Type Recheck O Negative Antibody Screen NEGATIVE Crossmatch See Detail 08/01/25 11:50 WBC RBC Hgb Hct MCV MCH MCHC RDW Std Deviation RDW Coeff of Miguelangel Plt Count MPV Immature Gran % (Auto) Neut % (Auto) Lymph % (Auto) [place] % (Auto) Eos % (Auto) Baso % (Auto) Neut # (Auto) Lymph # (Auto) [place] # (Auto) Eos # (Auto) Baso # (Auto) Immature Gran # (Auto) Polychromasia Microcytosis PT INR Sodium Potassium Chloride Carbon Dioxide Anion Gap BUN Creatinine Est Cr Clr Drug Dosing eGFR BUN/Creatinine Ratio Glucose Calcium Magnesium Iron Total Bilirubin AST ALT Alkaline Phosphatase Troponin I High Sens Total Protein Albumin Globulin Albumin/Globulin Ratio Lipase Urine Color Yellow Urine Appearance Clear Urine pH 6.5 Ur Specific [place] 1.018 Urine Protein Negative Urine Glucose (UA) Negative Urine Ketones Negative Urine Blood Negative Urine Nitrite Negative Urine Bilirubin Negative Urine Urobilinogen Negative Ur Leukocyte Esterase Negative Urine Comment Blood Type Blood Type Recheck Antibody Screen Crossmatch Diagnostic Findings Chest X-Ray 08/01/25 10:45 Clinical History: Cough and chest pain Technique: 2 frontal views of the chest were obtained Findings: There are no confluent pulmonary infiltrates. The heart size is within normal limits. No pleural effusion or pneumothorax is seen. There is no definite pulmonary nodule. No fracture is noted. No foreign body is seen Impression: No active disease Electronically signed by Nehemiah Thomas 08-01-2025 11:39 AM Medications Administered Discontinued Medications Sodium Chloride (Nss) 500 mls @ 999 mls/hr IV .Q31M ONE Stop: 08/01/25 11:16 Last Infusion: 08/01/25 11:34 Dose: Infused Documented By: Admin: 08/01/25 10:51 Dose: 999 mls/hr Documented By: CAP Supervising Physician Co-Signing Physician Notes Patient seen and examined at bedside. Patient with near syncopal episodes, denies blood in stool, had had chronic cough, exposures. On exam, patient relatively well appearing, slight conjunctival pallor and slightly diminished cap refill. Hgb of 6.2 with low iron suggestive of acute or chronic blood loss anemia of unknown etiology. Creatinine around baseline. Presentation consistent with acute vs. chronic blood loss anemia of unknown etiology, concerning for malignancy given iron deficiency. Cough concerning for primary lung malignancy. Check CT chest/abdomen/pelvis. Gamma gap noted. Check metabolic workup including: CEA, PSA, SPEP, light chains, LDH, full iron panel, peripheral smear with path review. Likely GI consult for likely EGD and colonoscopy given hx of Barrets esophagus, colonoscopy given iron deficiency. Recheck CBC post transfusion. I have seen and discussed the case with the collaborating advanced practitioner. I agree with the above H&P. I have reviewed and confirmed the patients medical history, the findings on physical examination, and the patients diagnosis and treatment plan with Anabelle Maher PA-C and agree with the information documented. I spent a total of 30 minutes coordinating, documenting, and providing care for this patient excluding time spent in the performance of separately billed services. All of the aforementioned completed outside of collaborating with the assigned advanced practitioner for a full treatment plan. I have reviewed the advanced practitioner's documentation, and I agree with, and take responsibility for the plan of care
[2025-08-01 14:01] LABS: Hematocrit (blood only) 22.7 % (42.0-52.0); Hemoglobin 6.0 g/dL (14.0-18.0); Immature Granulocytes # (auto) 0.02 K/uL (0.01-0.20); Immature Granulocytes % (auto) 0.3 %; Mean Corpuscular Hemoglobin 18.0 pg (25.0-34.0); Mean Corpuscular Volume 68.0 fL (80.0-100.0); Platelet Count 641 K/uL (130-400); RDW Standard Deviation 47.0 fL (36.4-46.3); Red Blood Count 3.34 M/uL (4.70-6.10); White Blood Count 6.74 K/ul (4.8-10.8)
[2025-08-01 14:11] LABS: Microcytosis Present; Polychromasia 1+
[2025-08-01] MEDS: OPTIRAY 320 100ml IV ONE (14:39)
--- NOTE | 2025-08-01 16:23 | XCELERA ---
[id number]
--- NOTE | 2025-08-01 17:34 | CT Scan Report ---
EXAMINATION: CT of the chest, abdomen and pelvis performed after the administration of IV contrast TECHNIQUE: Helical CT images from the lung apices through the symphysis pubis were obtained with contrast. Coronal and sagittal reformatted images were generated at a workstation for further assessment. Dose reduction techniques were achieved by using automatic exposure control and/or adjustment of mA and/or kV according to patient size and/or use of iterative reconstruction technique. COMPARISON: None HISTORY: Anemia FINDINGS: Lines and tubes: None Mediastinum/Neck Base: No thyroid nodules. Central tracheobronchial tree is patent. Heart size is normal. No pericardial effusion. Normal thoracic vasculature. No thoracic lymphadenopathy. Lungs: No consolidation. No pleural effusion or pneumothorax. There is an isolated cyst in the anteromedial right upper lobe. Calcified granuloma in the left lower lobe. Liver: A few tiny low-density foci in the liver, are nonspecific. Portal veins appear patent. Gallbladder: No gallstones. No evidence of acute cholecystitis. Spleen: Normal size. Pancreas: No suspicious pancreatic lesions. The pancreatic duct is not dilated. Adrenal glands: No adrenal nodules. Kidneys: No hydronephrosis or obstructing renal stones. Bladder / Pelvic organs: Brachytherapy beads in the prostate gland. The prostate gland does not appear significantly enlarged. The urinary bladder is unremarkable. Evaluation of the pelvis somewhat limited due to streak artifact from the left hip arthroplasty.. Bowel: No bowel obstruction. No abnormal bowel wall thickening. The appendix is not definitely seen. Lymph nodes: No retroperitoneal, mesenteric, or pelvic lymphadenopathy. Peritoneum / Retroperitoneum: No free fluid or air within the abdomen. Vessels: No infrarenal aortic aneurysm. Mild aortoiliac calcification. Bones and soft tissues: Degenerative changes of the spine. No acute osseous normality. A 4 mm sclerotic density in the right iliac bone, series 3 image 53. 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 Severe L5-S1 degenerative disc height loss. Moderate to severe L4-5 degenerative disc height loss. IMPRESSION: No acute finding in the chest, abdomen or pelvis, or finding to specifically explain patient's symptoms. Right iliac bone 4 mm sclerotic density, is indeterminate. Early metastatic disease not excluded. A few tiny low-density foci in the liver, are nonspecific, however which favor cysts. Attention on follow-up. This could also be evaluated with MRI if indicated. Electronically signed by Amari Sims 08-01-2025 5:34 PM
[2025-08-01 20:38] LABS: Hematocrit (blood only) 21.3 % (42.0-52.0); Hemoglobin 6.1 g/dL (14.0-18.0)
[2025-08-01] MEDS: ACETAMINOPHEN 325 MG TAB PO ONE (21:55)
[2025-08-01] MEDS: FUROSEMIDE INJ 20 MG/2 ML VIAL IV ONE (23:29)
[2025-08-02 03:06] LABS: Hematocrit (blood only) 25.3 % (42.0-52.0); Hemoglobin 7.2 g/dL (14.0-18.0); Immature Granulocytes # (auto) 0.02 K/uL (0.01-0.20); Immature Granulocytes % (auto) 0.3 %; Mean Corpuscular Hemoglobin 20.0 pg (25.0-34.0); Mean Corpuscular Volume 70.3 fL (80.0-100.0); Platelet Count 518 K/uL (130-400); RDW Standard Deviation 55.5 fL (36.4-46.3); Red Blood Count 3.60 M/uL (4.70-6.10); White Blood Count 5.85 K/ul (4.8-10.8)
[2025-08-02 03:07] LABS: Hematocrit (blood only) 25.1 % (42.0-52.0); Hemoglobin 7.2 g/dL (14.0-18.0)
[2025-08-02 03:22] LABS: Alanine Aminotransferase 10.0 U/L (7-52); Albumin Level 3.6 gm/dl (3.4-5.0); Alkaline Phosphatase 117.0 U/L (34-104); Anion Gap 8.0 (3-11); Bilirubin,Total 0.8 mg/dl (0.2-1.0); Blood Urea Nitrogen 18.0 mg/dl (6-23); Calcium 8.9 mg/dl (8.6-10.3); Carbon Dioxide 23.0 mmol/L (21-32); Chloride 105.0 mmol/L (98-107); Creatinine Clr Calc Pharmacy 70.8 ml/min; Glucose 80.0 mg/dl (70-99(Fasting)); Potassium 3.7 mmol/L (3.5-5.1); Sodium 136.0 mmol/L (136-145); Total Protein 7.4 gm/dl (6.0-8.3)
[2025-08-02 03:31] LABS: Anisocytosis Present; Polychromasia 2+
[2025-08-02] MEDS: LEVOTHYROXINE SODIUM 88 MCG TABLET PO SCH (05:45)
[2025-08-02] MEDS: FEXOFENADINE HCL 180 MG TAB PO SCH (07:24)
[2025-08-02] MEDS: ATORVASTATIN 20 MG TAB PO SCH (07:24)
[2025-08-02 07:38] LABS: Hematocrit (blood only) 26.0 % (42.0-52.0); Hemoglobin 7.4 g/dL (14.0-18.0); Immature Granulocytes # (auto) 0.02 K/uL (0.01-0.20); Immature Granulocytes % (auto) 0.4 %; Mean Corpuscular Hemoglobin 19.9 pg (25.0-34.0); Mean Corpuscular Volume 70.1 fL (80.0-100.0); Platelet Count 487 K/uL (130-400); RDW Standard Deviation 54.4 fL (36.4-46.3); Red Blood Count 3.71 M/uL (4.70-6.10); White Blood Count 5.68 K/ul (4.8-10.8)
[2025-08-02] MEDS ORDERED: SODIUM CHLORIDE 0.9% 100 ML IV PRN (07:41)
[2025-08-02 08:00] LABS: Anisocytosis Present; Polychromasia 1+; Tear Drop Cells 1+
--- NOTE | 2025-08-02 09:37 | Electrocardiogram Report ---
Test Reason : Blood Pressure : */* mmHG Vent. Rate : 79 BPM Atrial Rate : 79 BPM P-R Int : 160 ms QRS Dur : 100 ms QT Int : 388 ms P-R-T Axes : 50 -12 33 degrees QTcB Int : 444 ms Normal sinus rhythm with sinus arrhythmia Voltage criteria for left ventricular hypertrophy ( R in aVL ) Nonspecific ST abnormality Abnormal ECG No previous ECGs available Confirmed by Greg Murdock ([id number]) on 08/02/2025 9:37:30 AM Referred By: REFERRED SELF Confirmed By: Greg Murdock
[2025-08-02] MEDS: FUROSEMIDE 40 MG/4 ML VIAL IV ONE (10:02)
[2025-08-02] MEDS: ACETAMINOPHEN 325 MG TAB PO PRN (10:03)
[2025-08-02] MEDS: FAMOTIDINE 20 MG TAB PO SCH (10:03)
--- NOTE | 2025-08-02 15:10 | Hospitalist Progress Note ---
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 In the ED, H&H was 6.0/22.7, MCV 68, globulin minimally elevated at 4.1, alk phos mildly elevated at 119, iron low at 18. He was referred for admission for further work-up of new anemia and transfusion of PRBCs. New severe iron deficiency anemia - symptomatic Syncopal events Anemia is microcytic with evidence of iron deficiency on labs. His outpatient labs were reviewed including CBCs for the last five years. His hemoglobin on those labs was always above 12 and his MCV was typically in the 90s. No prior severe anemia or microcytosis noted. He notes a change in chronic cough over the last few months as well as new nocturia. History of prostate ca s/p radiation seed implants, successfully treated. Likely secondary to chronic blood loss and subsequent iron deficiency To rule out possible malignancy CT chest/abdomen/pelvis -remained unremarkable SPEP, LDH, PSA, CEA, kappa lambda chains, peripheral smear-these are pending for now Received so far 2 units of blood transfusion and the hemoglobin went up to 7.4. He will receive another unit of blood transfusion Possible syncope likely secondary to low hemoglobinno arrhythmias and no ACS suspected Echo of the heart showed EF of 55 to 60%, RV is normal in size and function, mild mitral regurgitation and mildly dilated ascending aorta of 4 cm He has been getting PPI and aspirin has been on hold Will monitor CBC Will check vitamin B12 and folate level and also TIBC and ferritin Will put in GI evaluation tomorrow-Will likely need EGD and colonoscopy down the line and oral iron on discharge #Hypertension - Hold amlodipine for now due to episodes of syncope, symptomatic anemia - Monitor BP closely #Prediabetes - A1c on 07/31/25 was 6.2 #Hypothyroidism - Chronic, stable - continue leveothyroxine #Hypercholesterolemia - Chronic, stable - continue statin Code status: full code DVT prophylaxis: SCDs in view of severe anemia of unclear etiology I spent a total of 57 minutes seeing the patient, examining him, explaining results of investigation and plan of care Admission and Anticipated Discharge Date Admission Date: August 01, 2025 Subjective 08/01/2025 He was admitted with patient with a hemoglobin of 5.7 Complaining of weakness and tiredness but no other significant symptoms Denies any hematemesis and/or melena. Does not remember when he was his endoscopies done Denies any chest pain, palpitation or shortness of breath, no abdominal pain nausea no vomiting Review of Systems Review of Systems: All systems reviewed and are unremarkable except as noted below Physical Exam Physical Exam: Lying in bed without any acute distress Constitutional: average body habitus; not ill appearing Eyes: PERRL, conjunctivae normal, anicteric sclerae ENMT: external ear and nose normal, oropharynx normal Neck: trachea midline, no thyromegaly Respiratory: no respiratory distress Auscultation: lungs clear to auscultation bilaterally Cardiovascular: Rate/Rhythm: regular rate and regular rhythm; not tachycardic Heart Sounds: normal S1 and normal S2; no murmur Extremities: no edema Gastrointestinal (Abdomen): Inspection/Auscultation: normal bowel sounds; abdomen not distended Percussion/Palpation: abdomen soft; abdomen nontender Musculoskeletal: No acute arthritis involving any of the joint Neurologic: normal touch/pain/proprioception and moves all extremities; no focal motor deficits Psychiatric: A+Ox3, euthymic affect Lymphatic: no cervical or axillary lymphadenopathy Results & Data Results & Data Vital Signs (Past 12 Hours) Vital Signs Temp Pulse Pulse Resp BP BP Pulse Ox 08/02/25 12:39 36.3 C L 74 18 149/88 H 94 08/02/25 11:39 37.0 C 75 18 144/83 H 94 08/02/25 11:09 36.4 C L 71 18 148/78 H 92 08/02/25 10:54 37.5 C 75 18 126/83 92 08/02/25 10:53 37.5 C 75 18 126/83 92 08/02/25 10:33 36.9 C 70 18 151/81 H 91 08/02/25 08:03 36.6 C 70 20 158/85 H 91 08/02/25 08:00 74 08/02/25 07:15 08/02/25 03:31 36.4 C L 72 12 150/85 H 94 O2 Del Method O2 Flow Rate 08/02/25 12:39 08/02/25 11:39 08/02/25 11:09 08/02/25 10:54 08/02/25 10:53 08/02/25 10:33 08/02/25 08:03 Room Air 08/02/25 08:00 08/02/25 07:15 Room Air 08/02/25 03:31 Nasal Cannula 2 Laboratory Results Short CBC 08/01/25 08/02/25 08/02/25 Range/Units 19:53 02:15 02:15 WBC 5.85 (4.8-10.8) K/ul Hgb 6.1 L* 7.2 L 7.2 L (14.0-18.0) g/dL Hct 21.3 L 25.3 L (42.0-52.0) % Plt Count (130-400) K/uL 08/02/25 08/02/25 Range/Units 02:15 07:25 WBC 5.68 (4.8-10.8) K/ul Hgb 7.4 L (14.0-18.0) g/dL Hct 25.1 L 26.0 L (42.0-52.0) % Plt Count 518 H 487 H (130-400) K/uL BMP 08/02/25 02:15 Sodium 136 Potassium 3.7 Chloride 105 Carbon Dioxide 23 BUN 18 Creatinine 0.96 Glucose 80 Calcium 8.9 Liver Function 08/02/25 Range/Units 02:15 Total Bilirubin 0.8 (0.2-1.0) mg/dl Direct Bilirubin 0.3 H (0-0.2) mg/dl AST 14 (13-39) U/L ALT 10 (7-52) U/L Alkaline Phosphatase 117 H (34-104) U/L Albumin 3.6 (3.4-5.0) gm/dl Diagnostic Findings Laboratory Results WBC 5.68 K/ul (4.8-10.8) 08/02/25 07:25 RBC 3.71 M/uL (4.70-6.10) L 08/02/25 07:25 Hgb 7.4 g/dL (14.0-18.0) L 08/02/25 07:25 Hct 26.0 % (42.0-52.0) L 08/02/25 07:25 MCV 70.1 fL (80.0-100.0) L 08/02/25 07:25 MCH 19.9 pg (25.0-34.0) L 08/02/25 07:25 MCHC 28.5 g/dL (32.0-36.0) L 08/02/25 07:25 RDW Std Deviation 54.4 fL (36.4-46.3) H 08/02/25 07:25 RDW Coeff of Miguelangel 22.0 % (11.5-14.5) H 08/02/25 07:25 Plt Count 487 K/uL (130-400) H 08/02/25 07:25 MPV 9.0 fL (9.4-12.4) L 08/02/25 07:25 Immature Gran % (Auto) 0.4 % 08/02/25 07:25 Neut % (Auto) 57.1 % 08/02/25 07:25 Lymph % (Auto) 19.0 % 08/02/25 07:25 Lagrange % (Auto) 17.1 % 08/02/25 07:25 Eos % (Auto) 5.3 % 08/02/25 07:25 Baso % (Auto) 1.1 % 08/02/25 07:25 Neut # (Auto) 3.25 K/uL (1.40-6.50) 08/02/25 07:25 Lymph # (Auto) 1.08 K/uL (1.20-3.40) L 08/02/25 07:25 Lagrange # (Auto) 0.97 K/uL (0.11-0.59) H 08/02/25 07:25 Eos # (Auto) 0.30 K/uL (0.00-0.50) 08/02/25 07:25 Baso # (Auto) 0.06 K/uL (0.00-0.20) 08/02/25 07:25 Immature Gran # (Auto) 0.02 K/uL (0.01-0.20) 08/02/25 07:25 Polychromasia 1+ 08/02/25 07:25 Anisocytosis Present 08/02/25 07:25 Microcytosis Present 08/01/25 10:20 Microcytosis Present 08/01/25 10:20 Tear Drop Cells 1+ 08/02/25 07:25 PT 10.9 Seconds (9.0-12.0) 08/01/25 10:20 INR 1.0 (0.9-1.1) 08/01/25 10:20 Sodium 136 mmol/L (136-145) 08/02/25 02:15 Potassium 3.7 mmol/L (3.5-5.1) 08/02/25 02:15 Chloride 105 mmol/L (98-107) 08/02/25 02:15 Carbon Dioxide 23 mmol/L (21-32) 08/02/25 02:15 Anion Gap 8 (3-11) 08/02/25 02:15 BUN 18 mg/dl (6-23) 08/02/25 02:15 Creatinine 0.96 mg/dl (0.6-1.4) 08/02/25 02:15 Est Cr Clr Drug Dosing 70.8 ml/min 08/02/25 02:15 eGFR 83.46 08/02/25 02:15 BUN/Creatinine Ratio 18.8 (10-20) 08/02/25 02:15 Glucose 80 mg/dl (70-99(Fasting)) 08/02/25 02:15 Calcium 8.9 mg/dl (8.6-10.3) 08/02/25 02:15 Magnesium 2.1 mg/dl (1.7-2.4) 08/01/25 10:20 Iron 18 mcg/dl (35-175) L 08/01/25 10:20 Total Bilirubin 0.8 mg/dl (0.2-1.0) 08/02/25 02:15 Direct Bilirubin 0.3 mg/dl (0-0.2) H 08/02/25 02:15 AST 14 U/L (13-39) 08/02/25 02:15 ALT 10 U/L (7-52) 08/02/25 02:15 Alkaline Phosphatase 117 U/L (34-104) H 08/02/25 02:15 Lactate Dehydrogenase 157 U/L (86-244) 08/01/25 10:20 Troponin I High Sens 6.9 pg/ml (0-20) 08/01/25 10:20 Total Protein 7.4 gm/dl (6.0-8.3) 08/02/25 02:15 Albumin 3.6 gm/dl (3.4-5.0) 08/02/25 02:15 Globulin 4.1 gm/dl (2.5-4.0) H 08/01/25 10:20 Albumin/Globulin Ratio 1.0 (0.9-2) 08/01/25 10:20 Lipase 39 U/L (11-82) 08/01/25 10:20 Carcinoembryonic Ag 3.1 ng/ml (0-2.5) H 08/01/25 10:54 Prostate Specific Ag 0.392 ng/ml (0-4) 08/01/25 10:20 Free PSA 0.03 ng/ml (0-2.0) 08/01/25 10:20 % Free PSA 7.7 % 08/01/25 10:20 Urine Color Yellow 08/01/25 11:50 Urine Appearance Clear (Clear) 08/01/25 11:50 Urine pH 6.5 (4.5-7.5) 08/01/25 11:50 Ur Specific Cecil 1.018 (1.000-1.030) 08/01/25 11:50 Urine Protein Negative (Negative) 08/01/25 11:50 Urine Glucose (UA) Negative (Negative) 08/01/25 11:50 Urine Ketones Negative (Negative) 08/01/25 11:50 Urine Blood Negative (Negative) 08/01/25 11:50 Urine Nitrite Negative (Negative) 08/01/25 11:50 Urine Bilirubin Negative (Negative) 08/01/25 11:50 Urine Urobilinogen Negative (Negative) 08/01/25 11:50 Ur Leukocyte Esterase Negative (Negative) 08/01/25 11:50 Urine Comment 08/01/25 11:50 Blood Type O Negative 08/01/25 10:53 Blood Type Recheck O Negative 08/01/25 11:35 Antibody Screen NEGATIVE 08/01/25 10:53 Crossmatch See Detail 08/01/25 10:53 Impressions Chest X-Ray 08/01/25 10:45 Clinical History: Cough and chest pain Technique: 2 frontal views of the chest were obtained Findings: There are no confluent pulmonary infiltrates. The heart size is within normal limits. No pleural effusion or pneumothorax is seen. There is no definite pulmonary nodule. No fracture is noted. No foreign body is seen Impression: No active disease Electronically signed by Nehemiah Thomas 08-01-2025 11:39 AM Abdomen/Pelvis CT 08/01/25 14:03 EXAMINATION: CT of the chest, abdomen and pelvis performed after the administration of IV contrast TECHNIQUE: Helical CT images from the lung apices through the symphysis pubis were obtained with contrast. Coronal and sagittal reformatted images were generated at a workstation for further assessment. Dose reduction techniques were achieved by using automatic exposure control and/or adjustment of mA and/or kV according to patient size and/or use of iterative reconstruction technique. COMPARISON: None HISTORY: Anemia FINDINGS: Lines and tubes: None Mediastinum/Neck Base: No thyroid nodules. Central tracheobronchial tree is patent. Heart size is normal. No pericardial effusion. Normal thoracic vasculature. No thoracic lymphadenopathy. Lungs: No consolidation. No pleural effusion or pneumothorax. There is an isolated cyst in the anteromedial right upper lobe. Calcified granuloma in the left lower lobe. Liver: A few tiny low-density foci in the liver, are nonspecific. Portal veins appear patent. Gallbladder: No gallstones. No evidence of acute cholecystitis. Spleen: Normal size. Pancreas: No suspicious pancreatic lesions. The pancreatic duct is not dilated. Adrenal glands: No adrenal nodules. Kidneys: No hydronephrosis or obstructing renal stones. Bladder / Pelvic organs: Brachytherapy beads in the prostate gland. The prostate gland does not appear significantly enlarged. The urinary bladder is unremarkable. Evaluation of the pelvis somewhat limited due to streak artifact from the left hip arthroplasty.. Bowel: No bowel obstruction. No abnormal bowel wall thickening. The appendix is not definitely seen. Lymph nodes: No retroperitoneal, mesenteric, or pelvic lymphadenopathy. Peritoneum / Retroperitoneum: No free fluid or air within the abdomen. Vessels: No infrarenal aortic aneurysm. Mild aortoiliac calcification. Bones and soft tissues: Degenerative changes of the spine. No acute osseous normality. A 4 mm sclerotic density in the right iliac bone, series 3 image 53. 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 Severe L5-S1 degenerative disc height loss. Moderate to severe L4-5 degenerative disc height loss. IMPRESSION: No acute finding in the chest, abdomen or pelvis, or finding to specifically explain patient's symptoms. Right iliac bone 4 mm sclerotic density, is indeterminate. Early metastatic disease not excluded. A few tiny low-density foci in the liver, are nonspecific, however which favor cysts. Attention on follow-up. This could also be evaluated with MRI if indicated. Electronically signed by Amari Sims 08-01-2025 5:[address] 08/01/25 14:03 EXAMINATION: CT of the chest, abdomen and pelvis performed after the administration of IV contrast TECHNIQUE: Helical CT images from the lung apices through the symphysis pubis were obtained with contrast. Coronal and sagittal reformatted images were generated at a workstation for further assessment. Dose reduction techniques were achieved by using automatic exposure control and/or adjustment of mA and/or kV according to patient size and/or use of iterative reconstruction technique. COMPARISON: None HISTORY: Anemia FINDINGS: Lines and tubes: None Mediastinum/Neck Base: No thyroid nodules. Central tracheobronchial tree is patent. Heart size is normal. No pericardial effusion. Normal thoracic vasculature. No thoracic lymphadenopathy. Lungs: No consolidation. No pleural effusion or pneumothorax. There is an isolated cyst in the anteromedial right upper lobe. Calcified granuloma in the left lower lobe. Liver: A few tiny low-density foci in the liver, are nonspecific. Portal veins appear patent. Gallbladder: No gallstones. No evidence of acute cholecystitis. Spleen: Normal size. Pancreas: No suspicious pancreatic lesions. The pancreatic duct is not dilated. Adrenal glands: No adrenal nodules. Kidneys: No hydronephrosis or obstructing renal stones. Bladder / Pelvic organs: Brachytherapy beads in the prostate gland. The prostate gland does not appear significantly enlarged. The urinary bladder is unremarkable. Evaluation of the pelvis somewhat limited due to streak artifact from the left hip arthroplasty.. Bowel: No bowel obstruction. No abnormal bowel wall thickening. The appendix is not definitely seen. Lymph nodes: No retroperitoneal, mesenteric, or pelvic lymphadenopathy. Peritoneum / Retroperitoneum: No free fluid or air within the abdomen. Vessels: No infrarenal aortic aneurysm. Mild aortoiliac calcification. Bones and soft tissues: Degenerative changes of the spine. No acute osseous normality. A 4 mm sclerotic density in the right iliac bone, series 3 image 53. 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 Severe L5-S1 degenerative disc height loss. Moderate to severe L4-5 degenerative disc height loss. IMPRESSION: No acute finding in the chest, abdomen or pelvis, or finding to specifically explain patient's symptoms. Right iliac bone 4 mm sclerotic density, is indeterminate. Early metastatic disease not excluded. A few tiny low-density foci in the liver, are nonspecific, however which favor cysts. Attention on follow-up. This could also be evaluated with MRI if indicated. Electronically signed by Amari Sims 08-01-2025 5:34 PM Medications Administered Current Inpatient Medications Acetaminophen (Acetaminophen 325 Mg Tab) 650 mg PO Q4H PRN PRN Reason: Pain or Fever Stop: 08/31/25 16:31 Last Admin: 08/02/25 10:03 Dose: 650 mg Atorvastatin Calcium (Atorvastatin 20 Mg Tab) 20 mg PO DAILY [facility] Stop: 09/01/25 08:59 Last Admin: 08/02/25 07:24 Dose: 20 mg Famotidine (Famotidine 20 Mg Tab) 20 mg PO DAILY [facility] Stop: 09/01/25 08:59 Last Admin: 08/02/25 10:03 Dose: 20 mg Fexofenadine HCl (Fexofenadine Hcl 180 Mg Tab) 180 mg PO DAILY [facility] Stop: 09/01/25 08:59 Last Admin: 08/02/25 07:24 Dose: 180 mg Sodium Chloride (Nss) 100 mls @ 15 mls/hr IV .Q6H40M PRN PRN Reason: For Transfusion Duration Stop: 08/02/25 15:41 Levothyroxine Sodium (Levothyroxine Sodium 88 Mcg Tablet) 88 mcg PO DAILYBB [facility] Stop: 09/01/25 06:29 Last Admin: 08/02/25 05:45 Dose: 88 mcg Pantoprazole Sodium (Pantoprazole 40 Mg Tab) 40 mg PO QAM [facility] Stop: 09/01/25 08:59 Last Admin: 08/02/25 07:24 Dose: 40 mg (1) Iron deficiency anemia Iron deficiency anemia type: unspecified iron deficiency Qualified Code(s): D50.9 - Iron deficiency anemia, unspecified (2) Syncope Syncope type: unspecified Qualified Code(s): R55 - Syncope and collapse
[2025-08-02 18:46] LABS: Hematocrit (blood only) 30.0 % (42.0-52.0); Hemoglobin 8.8 g/dL (14.0-18.0); Immature Granulocytes # (auto) 0.03 K/uL (0.01-0.20); Immature Granulocytes % (auto) 0.4 %; Mean Corpuscular Hemoglobin 20.8 pg (25.0-34.0); Mean Corpuscular Volume 70.9 fL (80.0-100.0); Platelet Count 526 K/uL (130-400); RDW Standard Deviation 55.3 fL (36.4-46.3); Red Blood Count 4.23 M/uL (4.70-6.10); White Blood Count 8.46 K/ul (4.8-10.8)
[2025-08-02 19:10] LABS: Acanthocytes 1+; Anisocytosis Present; Polychromasia 2+; Tear Drop Cells 1+
[2025-08-03 08:40] LABS: Hematocrit (blood only) 29.6 % (42.0-52.0); Hemoglobin 8.7 g/dL (14.0-18.0); Immature Granulocytes # (auto) 0.03 K/uL (0.01-0.20); Immature Granulocytes % (auto) 0.5 %; Mean Corpuscular Hemoglobin 20.9 pg (25.0-34.0); Mean Corpuscular Volume 71.0 fL (80.0-100.0); Platelet Count 531 K/uL (130-400); RDW Standard Deviation 55.6 fL (36.4-46.3); Red Blood Count 4.17 M/uL (4.70-6.10); White Blood Count 6.38 K/ul (4.8-10.8)
[2025-08-03 08:55] LABS: Alanine Aminotransferase 8.0 U/L (7-52); Albumin Globulin Ratio 1.0 (0.9-2); Albumin Level 3.9 gm/dl (3.4-5.0); Alkaline Phosphatase 109.0 U/L (34-104); Anion Gap 9.0 (3-11); Bilirubin,Total 0.8 mg/dl (0.2-1.0); Blood Urea Nitrogen 24.0 mg/dl (6-23); Calcium 9.1 mg/dl (8.6-10.3); Carbon Dioxide 23.0 mmol/L (21-32); Chloride 105.0 mmol/L (98-107); Creatinine Clr Calc Pharmacy 70.0 ml/min; Globulin 3.9 gm/dl (2.5-4.0); Glucose 70.0 mg/dl (70-99(Fasting)); Potassium 4.0 mmol/L (3.5-5.1); Sodium 137.0 mmol/L (136-145); Total Protein 7.8 gm/dl (6.0-8.3)
[2025-08-03 09:07] LABS: Anisocytosis Present; Polychromasia 1+
[2025-08-03 09:14] LABS: Ferritin 12.0 ng/ml (8-388)
[2025-08-03 09:26] LABS: Folate (Folic Acid),Ser orPlas 20.14 ng/ml (>5.38)
[2025-08-03 09:27] LABS: Vitamin B12 224.0 pg/ml (180-914)
--- NOTE | 2025-08-03 10:13 | Gastrointestinal Consultation ---
Date of Consultation August 03, 2025 Assessment & Plan (1) Iron deficiency anemia: -Continue to monitor H/H -Continue to monitor for overt GI bleeding -Will defer treatment of iron deficiency to primary team -Will need EGD & colonoscopy; timing TBD. Will discuss further with GI team for planning purposes. Supervising Physician Co-Signing Physician Notes I examined this patient with our nurse practitioner and agree with her assessment and plan. New onset significant iron deficiency anemia without overt GI bleeding or significant GI symptoms. Longstanding heartburn symptoms that have not changed. Despite this need to exclude GI blood loss and a 75-year-old man. Will proceed with endoscopy and colonoscopy. History of Present Illness Reason for Consultation: Anemia Attending Physician: Mckinley Louise MD History of Present Illness Patient is a 75 yo male with microcytic iron deficiency anemia currently hospitalized for an acutely low hemoglobin. At the time of presentation to the ED, hgb was 5.7. He does not have any overt GI bleeding. No abdominal pain. He cannot recall his last EGD or colonoscopy, but believes that if he had these they would have been done at [facility]. Iron level 18. TIBC 357. Ferritin 12. He takes Omeprazole 40 mg daily and Famotidine 20 mg daily at home. He notes that if not for fatigue and shortness of breath, he would not have realized something was wrong. He does acknowledge syncope. CT abd/pelvis: IMPRESSION: No acute finding in the chest, abdomen or pelvis, or finding to specifically explain patient's symptoms. Right iliac bone 4 mm sclerotic density, is indeterminate. Early metastatic disease not excluded. A few tiny low-density foci in the liver, are nonspecific, however which favor cysts. Attention on follow-up. This could also be evaluated with MRI if indicated. Electronically signed by Amari Sims 08-01-2025 5:34 PM Allergies Allergy/AdvReac Type Severity Reaction Status Date / Time No Known Allergies Allergy Unverified 11/18/15 09:18 Home Medications Medication Instructions Recorded Confirmed Type amlodipine 2.5 mg tablet 2.5 mg PO DAILY 08/01/25 08/01/25 History aspirin 81 mg tablet,delayed 81 mg PO DAILY 08/01/25 08/01/25 History release atorvastatin 20 mg tablet 20 mg PO DAILY 08/01/25 08/01/25 History famotidine 20 mg tablet 20 mg PO DAILY 08/01/25 08/01/25 History fexofenadine 180 mg tablet 180 mg PO DAILY 08/01/25 08/01/25 History levothyroxine 88 mcg tablet 88 mcg PO DAILY 08/01/25 08/01/25 History omeprazole 40 mg capsule,delayed 40 mg PO DAILY 08/01/25 08/01/25 History release Patient History Medical History Acquired hypothyroidism 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 GERD without esophagitis Essential hypertension Peripheral polyneuropathy Prediabetes Pure hypercholesterolemia RLS (restless legs syndrome) 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 Prostate cancer (10/18/15) "DIAGNOSIS: Prostate, adenocarcinoma, lissett 3 + 4, PSA 10.15, cT1c, group IIA Volume - 36.74 cc PSAD - 0.27 Status post completion of radiation therapy 03/02/2016 received 8,100 cGy" On 11/18/15 10:43 Glen Nina wrote "DIAGNOSIS: Prostate, adenocarcinoma, lissett 3 + 4, PSA 10.15, cT1c, group IIA Volume - 36.74 cc PSAD - 0.27" Surgical History History of inguinal hernia repair H/O rotator cuff surgery History of total left hip replacement Family History Other Hypertension Social History Smoking Status: Never smoker Second Hand Exposure: No; Do You Dip or Chew Tobacco: No; Tobacco Cessation Education Requested by Patient: No Hx Alcohol Use: No Hx Substance Use: No Preferred Language: Khmer Communication Ability: Effective Kindergarten Instructional Assistant Required: No Beliefs That Will Affect Care: None Current Living Situation: Alone Other Information That Helps Us Care for You: No Feels Safe at Home: Yes Safety Concerns: Feels Safe At This Time Assistive Devices: Glasses Review of Systems Constitutional: no fever and no chills Respiratory: no cough and no dyspnea Cardiovascular: no chest pain Gastrointestinal: no abdominal pain and no blood in stools Physical Exam Gastrointestinal (Abdomen): normal bowel sounds, soft, nontender, no hepatosplenomegaly Results & Data Vital Signs (Past 12 Hours) Vital Signs Temp Pulse Pulse Resp BP Pulse Ox O2 Del Method 08/03/25 09:00 Room Air 08/03/25 07:36 36.6 C 71 18 151/82 H 93 Room Air 08/03/25 07:21 83 08/03/25 03:00 36.8 C 77 17 156/85 H 94 Room Air 08/02/25 23:39 36.7 C 78 18 158/84 H 92 Room Air PG Care Time/CCT Total # of Minutes Spent Total Time Spent with Patient: Total time spent is greater than 50% in coordination of care (as documented) at patient's floor/unit and/or counseling patient: Coding Level of Care Code 48624 INT INP/OBS CARE 3/75MIN Diagnoses Iron deficiency anemia D50.9 Iron deficiency anemia type: unspecified iron deficiency (1) Iron deficiency anemia Iron deficiency anemia type: unspecified iron deficiency Qualified Code(s): D50.9 - Iron deficiency anemia, unspecified
[2025-08-03] MEDS: LAVAGE SOLUTION 4000ML PO SCH (18:18)
--- NOTE | 2025-08-04 08:19 | Hospitalist Progress Note ---
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 In the ED, H&H was 6.0/22.7, MCV 68, globulin minimally elevated at 4.1, alk phos mildly elevated at 119, iron low at 18. He was referred for admission for further work-up of new anemia and transfusion of PRBCs. New severe iron deficiency anemia - symptomatic Syncopal events Anemia is microcytic with evidence of iron deficiency on labs. His outpatient labs were reviewed including CBCs for the last five years. His hemoglobin on those labs was always above 12 and his MCV was typically in the 90s. No prior severe anemia or microcytosis noted. He notes a change in chronic cough over the last few months as well as new nocturia. History of prostate ca s/p radiation seed implants, successfully treated. 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 He will receive another unit of blood transfusion Possible syncope likely secondary to low hemoglobinno arrhythmias and no ACS suspected Echo of the heart showed EF of 55 to 60%, RV is normal in size and function, mild mitral regurgitation and mildly dilated ascending aorta of 4 cm He has been getting PPI and aspirin has been on hold Will monitor CBC Will check vitamin B12 and folate level and also TIBC and ferritin Will put in GI evaluation tomorrow-Will likely need EGD and colonoscopy down the line and oral iron on discharge ESR seems to be elevated at more than 130 and awaiting further test results including SPEP Possible chronic blood loss from the GI tract Hemoglobin remains stable following blood transfusion and is 8.7 as of 08/03/2025 Remains stable -will have Endoscopies tomorrow #Hypertension - Hold amlodipine for now due to episodes of syncope, symptomatic anemia - Monitor BP closely #Prediabetes - A1c on 07/31/25 was 6.2 #Hypothyroidism - Chronic, stable - continue leveothyroxine #Hypercholesterolemia - Chronic, stable - continue statin Code status: full code DVT prophylaxis: SCDs in view of severe anemia of unclear etiology I spent a total of 35 minutes seeing the patient, examining him, explaining results of investigation and plan of care Admission and Anticipated Discharge Date Admission Date: August 01, 2025 Subjective 08/02/2025 He was admitted with patient with a hemoglobin of 5.7 Complaining of weakness and tiredness but no other significant symptoms Denies any hematemesis and/or melena. Does not remember when he was his endoscopies done Denies any chest pain, palpitation or shortness of breath, no abdominal pain nausea no vomiting 08/03/2025 The patient was seen and examined in medical telemetry unit He has been stable and denies any significant symptoms He was seen by the emergency department rn and will have endoscopies planned for tomorrow Review of Systems Review of Systems: All systems reviewed and are unremarkable except as noted below Physical Exam Physical Exam: Lying in bed without any acute distress Constitutional: average body habitus; not ill appearing Eyes: PERRL, conjunctivae normal, anicteric sclerae ENMT: external ear and nose normal, oropharynx normal Neck: trachea midline, no thyromegaly Respiratory: no respiratory distress Auscultation: lungs clear to auscultation bilaterally Cardiovascular: Rate/Rhythm: regular rate and regular rhythm; not tachycardic Heart Sounds: normal S1 and normal S2; no murmur Extremities: no edema Gastrointestinal (Abdomen): Inspection/Auscultation: normal bowel sounds; abdomen not distended Percussion/Palpation: abdomen soft; abdomen nontender Neurologic: normal touch/pain/proprioception and moves all extremities; no focal motor deficits Psychiatric: A+Ox3, euthymic affect Lymphatic: no cervical or axillary lymphadenopathy Results & Data Results & Data Vital Signs (Past 12 Hours) Vital Signs Temp Pulse Pulse Resp BP Pulse Ox O2 Del Method 08/04/25 07:58 36.6 C 18 L 18 150/78 H 92 Room Air 08/04/25 03:00 36.6 C 76 16 152/85 H 94 Room Air 08/03/25 22:57 37.1 C 88 18 182/90 H 90 Room Air 08/03/25 21:46 74 (1) Iron deficiency anemia Iron deficiency anemia type: unspecified iron deficiency Qualified Code(s): D50.9 - Iron deficiency anemia, unspecified (2) Syncope Syncope type: unspecified Qualified Code(s): R55 - Syncope and collapse
--- NOTE | 2025-08-04 10:27 | History & Physical Bridge Note ---
Date of Service August 04, 2025 History & Physical Bridge Note I have examined the patient, reviewed the History & Physical and in the interval since the performance of the History & Physical I have noted the following changes of clinical significance: no changes noted. H/H 8.7/29.6. Patient completed his bowel prep, has been NPO and is awaiting a colonoscopy & EGD. Keep NPO and proceed with scopes today. Supervising Physician Co-Signing Physician Notes I saw and examined this patient with our nurse practitioner and agree with her assessment and plan. No signs of overt bleeding. Medically stable. Will proceed with endoscopy and colonoscopy.
--- NOTE | 2025-08-04 14:01 | Anesthesiology Consultation ---
Date of Service August 04, 2025 Assessment & Plan Chart Review Chart Review: Acceptable Risk for Surgery Consults Requested none ASA ASA3 Proposed Anesthesia Anesthesia Type: MAC Risk / Benefits Reviewed With: PT / POA / Parent / Guardian, Accepts Plan and Informed Consent Obtained History Surgery Operation Date: 08/04/25 17:00 Proposed Procedures p Colonoscopy EGD Dr. Hubert Gaspar MD Height/Weight Height: 5 ft 10 in Weight: 78.7 kg Allergies Allergy/AdvReac Type Severity Reaction Status Date / Time No Known Allergies Allergy Unverified 11/18/15 09:18 Medications Home Medications Medication Instructions Recorded Confirmed Last Taken amlodipine 2.5 mg tablet 2.5 mg PO DAILY 08/01/25 08/01/25 07/31/25 aspirin 81 mg tablet,delayed 81 mg PO DAILY 08/01/25 08/01/25 07/31/25 release atorvastatin 20 mg tablet 20 mg PO DAILY 08/01/25 08/01/25 07/31/25 famotidine 20 mg tablet 20 mg PO DAILY 08/01/25 08/01/25 07/31/25 fexofenadine 180 mg tablet 180 mg PO DAILY 08/01/25 08/01/25 07/31/25 levothyroxine 88 mcg tablet 88 mcg PO DAILY 08/01/25 08/01/25 08/01/25 omeprazole 40 mg capsule,delayed 40 mg PO DAILY 08/01/25 08/01/25 07/31/25 release Active Medications Generic Name Dose Route Start Last Admin Trade Name Freq PRN Reason Stop Dose Admin Acetaminophen 650 mg 08/01/25 16:32 08/02/25 10:03 Acetaminophen 325 Mg Tab PO 08/31/25 16:31 650 mg Q4H PRN Administration Pain or Fever Atorvastatin Calcium 20 mg 08/02/25 09:00 08/04/25 08:44 Atorvastatin 20 Mg Tab PO 09/01/25 08:59 20 mg DAILY [facility] Administration Famotidine 20 mg 08/02/25 09:00 08/04/25 08:44 Famotidine 20 Mg Tab PO 09/01/25 08:59 20 mg DAILY [facility] Administration Fexofenadine HCl 180 mg 08/02/25 09:00 08/04/25 08:43 Fexofenadine Hcl 180 Mg Tab PO 09/01/25 08:59 180 mg DAILY [facility] Administration Guaifenesin/Dextromethorphan 10 ml 08/03/25 09:13 08/04/25 08:43 Guaifenesin/Dextrom Syrup 200mg/20mg 10ml Udc PO 09/02/25 09:12 10 ml Q6H PRN Administration Cough Levothyroxine Sodium 88 mcg 08/02/25 06:30 08/04/25 05:55 Levothyroxine Sodium 88 Mcg Tablet PO 09/01/25 06:29 88 mcg DAILYBB [facility] Administration Pantoprazole Sodium 40 mg 08/02/25 09:00 08/04/25 08:43 Pantoprazole 40 Mg Tab PO 09/01/25 08:59 40 mg QAM [facility] Administration NPO Date Last Intake of Fluids: 08/04/25 Time Last Intake of Fluids: 11:30 Date Last Intake of Solids: 08/03/25 Time Last Intake of Solids: 12:00 Last Intake of Solids Comment: yest lunch Past Medical History Medical History Acquired hypothyroidism 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 GERD without esophagitis Essential hypertension Peripheral polyneuropathy Prediabetes Pure hypercholesterolemia RLS (restless legs syndrome) 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 Prostate cancer (10/18/15) "DIAGNOSIS: Prostate, adenocarcinoma, lissett 3 + 4, PSA 10.15, cT1c, group IIA Volume - 36.74 cc PSAD - 0.27 Status post completion of radiation therapy 03/02/2016 received 8,100 cGy" On 11/18/15 10:43 Glen Nina wrote "DIAGNOSIS: Prostate, adenocarcinoma, lissett 3 + 4, PSA 10.15, cT1c, group IIA Volume - 36.74 cc PSAD - 0.27" Past Family History Family History Other Hypertension Past Surgical History Surgical History History of inguinal hernia repair H/O rotator cuff surgery History of total left hip replacement Social History Smoking Status: Never smoker Do You Dip or Chew Tobacco: No Hx Alcohol Use: No Hx Substance Use: No Physical Exam Vital Signs Last Vital Signs Temp 36.7 C 08/04/25 13:52 Pulse 75 08/04/25 13:52 Resp 18 08/04/25 13:52 BP 173/87 H 08/04/25 13:52 Pulse Ox 94 08/04/25 13:52 O2 Del Method Room Air 08/04/25 13:52 O2 Flow Rate 2 08/02/25 03:31 Constitutional no acute distress ENMT Mouth: + dentures and + edentulous; no TMJ abnormality Thyromental Distance: < 3.5 Finger Breadths Mallampati Class: III Neck normal visual inspection Respiratory normal respiratory effort Cardiovascular Rate/Rhythm: regular rate and regular rhythm Musculoskeletal Spine: normal cervical ROM Neurologic moves all extremities Psychiatric Orientation: alert and oriented x 3 Testing Laboratory Results 08/03/25 08:04 08/03/25 08:04 PT 10.9 Seconds (9.0-12.0) 08/01/25 10:20 INR 1.0 (0.9-1.1) 08/01/25 10:20 Urine Color Yellow 08/01/25 11:50 Urine Appearance Clear (Clear) 08/01/25 11:50 Urine pH 6.5 (4.5-7.5) 08/01/25 11:50 Ur Specific [place] 1.018 (1.000-1.030) 08/01/25 11:50 Urine Protein Negative (Negative) 08/01/25 11:50 Urine Glucose (UA) Negative (Negative) 08/01/25 11:50 Urine Ketones Negative (Negative) 08/01/25 11:50 Urine Nitrite Negative (Negative) 08/01/25 11:50 Ur Leukocyte Esterase Negative (Negative) 08/01/25 11:50 Blood Type O Negative 08/01/25 10:53 Antibody Screen NEGATIVE 08/01/25 10:53
--- NOTE | 2025-08-04 15:00 | Hospitalist Progress Note ---
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 In the ED, H&H was 6.0/22.7, MCV 68, globulin minimally elevated at 4.1, alk phos mildly elevated at 119, iron low at 18. He was referred for admission for further work-up of new anemia and transfusion of PRBCs. New severe iron deficiency anemia - symptomatic Syncopal events Anemia is microcytic with evidence of iron deficiency on labs. His outpatient labs were reviewed including CBCs for the last five years. His hemoglobin on those labs was always above 12 and his MCV was typically in the 90s. No prior severe anemia or microcytosis noted. He notes a change in chronic cough over the last few months as well as new nocturia. History of prostate ca s/p radiation seed implants, successfully treated. 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 He will receive another unit of blood transfusion Possible syncope likely secondary to low hemoglobinno arrhythmias and no ACS suspected Echo of the heart showed EF of 55 to 60%, RV is normal in size and function, mild mitral regurgitation and mildly dilated ascending aorta of 4 cm He has been getting PPI and aspirin has been on hold Will monitor CBC Will check vitamin B12 and folate level and also TIBC and ferritin Will put in GI evaluation tomorrow-Will likely need EGD and colonoscopy down the line and oral iron on discharge ESR seems to be elevated at more than 130 And awaiting further test results including SPEP Remains medically stable for EGD and or colonoscopy this afternoon Workup for anemia:: To rule out possible malignancy CT chest/abdomen/pelvis -remained unremarkable SPEP, LDH, PSA, CEA, kappa lambda chains, peripheral smear-these are pending for now ESR remains highly elevated as above in the peripheral blood pressure and showed evidence of iron deficiency on top of leukoerythroblastic changes with rouleaux formation Has sclerotic lesions in the pelvic bone as well Likely has multiple myeloma -awaiting SPEP Will need hematology appointment as soon as possible following discharge Possible chronic blood loss from the GI tract Hemoglobin remains stable following blood transfusion and is 8.7 as of 08/03/2025 Remains stable -will have Endoscopies tomorrow #Hypertension - Hold amlodipine for now due to episodes of syncope, symptomatic anemia - Monitor BP closely #Prediabetes - A1c on 07/31/25 was 6.2 #Hypothyroidism - Chronic, stable - continue leveothyroxine #Hypercholesterolemia - Chronic, stable - continue statin Code status: full code DVT prophylaxis: SCDs in view of severe anemia of unclear etiology I spent a total of 35 minutes seeing the patient, examining him, explaining results of investigation and plan of care Admission and Anticipated Discharge Date Admission Date: August 01, 2025 Subjective 08/02/2025 He was admitted with patient with a hemoglobin of 5.7 Complaining of weakness and tiredness but no other significant symptoms Denies any hematemesis and/or melena. Does not remember when he was his endoscopies done Denies any chest pain, palpitation or shortness of breath, no abdominal pain nausea no vomiting 08/03/2025 The patient was seen and examined in medical telemetry unit He has been stable and denies any significant symptoms He was seen by the exceptional children teacher and will have endoscopies planned for tomorrow 08/04/2025 The patient was seen and examined in medical telemetry unit He remains stable without any significant symptoms Cough is better Awaiting endoscopies this afternoon Review of Systems Review of Systems: All systems reviewed and are unremarkable except as noted below Physical Exam Physical Exam: Lying in bed without any acute distress Constitutional: average body habitus; not ill appearing Eyes: PERRL, conjunctivae normal, anicteric sclerae ENMT: external ear and nose normal, oropharynx normal Neck: trachea midline, no thyromegaly Respiratory: no respiratory distress Auscultation: lungs clear to auscultation bilaterally Cardiovascular: Rate/Rhythm: regular rate and regular rhythm; not tachycardic Heart Sounds: normal S1 and normal S2; no murmur Extremities: no edema Gastrointestinal (Abdomen): Inspection/Auscultation: normal bowel sounds; abdomen not distended Percussion/Palpation: abdomen soft; abdomen nontender Neurologic: normal touch/pain/proprioception and moves all extremities; no focal motor deficits Psychiatric: A+Ox3, euthymic affect Lymphatic: no cervical or axillary lymphadenopathy Results & Data Results & Data Vital Signs (Past 12 Hours) Vital Signs Temp Pulse Pulse Resp BP Pulse Ox O2 Del Method 08/04/25 13:52 36.7 C 75 18 173/87 H 94 Room Air 08/04/25 11:16 36.5 C 60 20 160/84 H 95 Room Air 08/04/25 07:58 36.6 C 75 18 150/78 H 92 Room Air 08/04/25 07:00 60 08/04/25 03:00 36.6 C 76 16 152/85 H 94 Room Air Medications Administered Current Inpatient Medications Acetaminophen (Acetaminophen 325 Mg Tab) 650 mg PO Q4H PRN PRN Reason: Pain or Fever Stop: 08/31/25 16:31 Last Admin: 08/02/25 10:03 Dose: 650 mg Atorvastatin Calcium (Atorvastatin 20 Mg Tab) 20 mg PO DAILY [facility] Stop: 09/01/25 08:59 Last Admin: 08/04/25 08:44 Dose: 20 mg Famotidine (Famotidine 20 Mg Tab) 20 mg PO DAILY [facility] Stop: 09/01/25 08:59 Last Admin: 08/04/25 08:44 Dose: 20 mg Fexofenadine HCl (Fexofenadine Hcl 180 Mg Tab) 180 mg PO DAILY [facility] Stop: 09/01/25 08:59 Last Admin: 08/04/25 08:43 Dose: 180 mg Guaifenesin/Dextromethorphan (Guaifenesin/Dextrom Syrup 200mg/20mg 10ml Udc) 10 ml PO Q6H PRN PRN Reason: Cough Stop: 09/02/25 09:12 Last Admin: 08/04/25 08:43 Dose: 10 ml Levothyroxine Sodium (Levothyroxine Sodium 88 Mcg Tablet) 88 mcg PO DAILYBB [facility] Stop: 09/01/25 06:29 Last Admin: 08/04/25 05:55 Dose: 88 mcg Pantoprazole Sodium (Pantoprazole 40 Mg Tab) 40 mg PO QAM [facility] Stop: 09/01/25 08:59 Last Admin: 08/04/25 08:43 Dose: 40 mg (1) Iron deficiency anemia Iron deficiency anemia type: unspecified iron deficiency Qualified Code(s): D50.9 - Iron deficiency anemia, unspecified (2) Syncope Syncope type: unspecified Qualified Code(s): R55 - Syncope and collapse
--- NOTE | 2025-08-04 15:10 | GI REPORT ---
[facility] Patient: ARASH SALAZAR : 1950 Sex at : Male Age: 75 Years Procedure: Colonoscopy Date: 08/04/2025 Attending Physician: Rodrick Gaspar MD Referring MD: Referred Keenan Indications: - Iron Deficiency anemia Medications: - Monitored Anesthesia Care Complications: - No immediate complications. Procedure: - Prior to the procedure, a History and Physical was performed, and patient medications and allergies were reviewed. The patient's tolerance of previous anesthesia was also reviewed. The risks and benefits of the procedure and the sedation options and risks were discussed with the patient. All questions were answered, and informed consent was obtained. [Anticoagulant Agents] [Days Prior to Procedure]. [ASA Grade]. After reviewing the risks and benefits, the patient was deemed in satisfactory condition to undergo the procedure. - The adult colonoscope was introduced through the anus and advanced to the terminal ileum, with identification of the appendiceal orifice and ileocecal valve. - The colonoscopy was performed without difficulty. - The patient tolerated the procedure well. - The quality of the bowel preparation was [Prep Quality]. - [Anatomical Structures] photographed. Findings: - The perianal and digital rectal examinations were normal. - A 10 mm polyp was found in the descending colon. The polyp was sessile. The polyp was removed with a hot snare. Resection and retrieval were complete. - The terminal ileum appeared normal. - A moderate amount of solid stool was found in the cecum, interfering with visualization. Doubt significant pathology under residue after moving it with forceps. - No other significant abnormalities were identified in a careful examination of the remainder of the colon. Impression: - One 10 mm polyp in the descending colon, removed with a hot snare. Resected and retrieved. - The examined portion of the ileum was normal. - Stool in the cecum. Recommendation: - Await pathology results. - Resume previous diet. - Patient has a contact number available for emergencies. The signs and symptoms of potential delayed complications were discussed with the patient. Return to normal activities tomorrow. Written discharge instructions were provided to the patient. Procedure Code(s): - 21453, Colonoscopy, flexible; with removal of tumor(s), polyp(s), or other lesion(s) by snare technique Diagnosis Code(s): - D12.4, Benign neoplasm of descending colon CPT(R) - 2024 copyright [employer]. All Rights Reserved. The CPT codes, CCI edits and ICD codes generated are intended as suggestions and were generated based on input data. These codes are preliminary and upon bar helper review may be revised to meet current compliance and payer requirements. The provider is responsible for the final determination of appropriate codes, and modifiers. Rodrick Gaspar MD This document has been electronically signed. Note Initiated:08/04/2025 Note Completed:08/04/2025 3:10 PM [email or web address]\Results\[email or web address]\[id number].pdf
--- NOTE | 2025-08-04 15:13 | GI REPORT ---
[facility] Patient: ARASH SALAZAR : 1950 Sex at : Male Age: 75 Years Procedure: Upper GI endoscopy Date: 08/04/2025 Attending Physician: Rodrick Gaspar MD Referring MD: Referred Self Indications: - Iron deficiency anemia Medications: - See the Anesthesia note for documentation of the administered medications Complications: Procedure: - The egd scope was introduced through the mouth and advanced to the second part of the duodenum. - The upper GI endoscopy was accomplished without difficulty. - The patient tolerated the procedure well. Findings: - The examined esophagus was normal. - Multiple sessile fundic gland polyps were found in the gastric body and in the gastric fundus. - The examined duodenum was normal. Impression: - Normal esophagus. - Multiple fundic gland polyps. - Normal examined duodenum. - No specimens collected. Recommendation: Procedure Code(s): - 36054, Esophagogastroduodenoscopy, flexible, transoral; diagnostic, including collection of specimen(s) by brushing or washing, when performed (separate procedure) Diagnosis Code(s): - K31.7, Polyp of stomach and duodenum CPT(R) - 2024 copyright [employer]. All Rights Reserved. The CPT codes, CCI edits and ICD codes generated are intended as suggestions and were generated based on input data. These codes are preliminary and upon certified professional coder review may be revised to meet current compliance and payer requirements. The provider is responsible for the final determination of appropriate codes, and modifiers. Rodrick Gaspar MD This document has been electronically signed. Note Initiated:08/04/2025 Note Completed:08/04/2025 3:12 PM [email or web address]\Results\[email or web address]\[id number]
--- NOTE | 2025-08-04 15:58 | Anesthesiology Progress Note ---
Date of Service August 04, 2025 Anesthesia Post Procedure Vital Signs Vital Signs: Temp Pulse Pulse Resp BP Pulse Ox O2 Del Method 08/04/25 15:28 71 16 144/84 H 93 Room Air 08/04/25 15:13 69 20 129/80 91 Room Air 08/04/25 14:58 82 22 106/67 93 Room Air 08/04/25 13:52 36.7 C 75 18 173/87 H 94 Room Air 08/04/25 11:16 36.5 C 60 20 160/84 H 95 Room Air 08/04/25 07:58 36.6 C 75 18 150/78 H 92 Room Air 08/04/25 07:00 60 08/04/25 03:00 36.6 C 76 16 152/85 H 94 Room Air 08/03/25 22:57 37.1 C 88 18 182/90 H 90 Room Air 08/03/25 21:46 74 08/03/25 20:09 Room Air 08/03/25 19:51 36.5 C 80 18 159/89 H 94 Room Air 08/03/25 16:50 36.8 C 73 18 149/84 H 96 Room Air Transfer of Care Handoff Completed per policy Notes Mental Status: alert / awake / arousable Patient Amnestic to Procedure: Yes Nausea / Vomiting: adequately controlled Pain: adequately controlled Airway Patency, RR, SpO2: stable & adequate BP & HR: stable & adequate Hydration State: stable & adequate Anesthetic Complications: no major complications apparent
[2025-08-04] MEDS: LIDOCAINE 2% 2 ML VIAL/AMP(20MG/ML) INFIL ONE (17:43)
[2025-08-04] MEDS: PROPOFOL IV EMULSION 10 MG/ML 20 ML VIAL IV ONE (17:44)
[2025-08-05 08:22] VITALS: PULSE 69; RESP 16; TEMP 97.9; O2SAT 91
--- NOTE | 2025-08-05 10:04 | Gastroenterology Progress Note ---
Date of Service August 05, 2025 Assessment & Plan (1) Iron deficiency anemia: Plan: Our office will contact patient to arrange outpatient VCE for further evaluation of the small bowel. Consider hematology eval as an outpatient as well. Admission and Anticipated Discharge Date Admission Date: August 01, 2025 Supervising Physician Co-Signing Physician Notes I saw and examined this patient with our nurse practitioner and agree with her assessment and plan. Endoscopy and colonoscopy unrevealing no significant pathology to explain iron deficiency anemia. Recommend patient small bowel capsule endoscopy to exclude small bowel pathology. Subjective Patient is a 75 yo male with anemia. H/H 8.7/29.6. EGD & colonoscopy on 08/04/25 without GI causes of bleeding/anemia. Patient is feeling better. He denies any GI complaints at the present time. Review of Systems Gastrointestinal: no abdominal pain, no nausea, no vomiting and no melena Physical Exam Gastrointestinal (Abdomen): normal bowel sounds, soft, nontender, no hepatosplenomegaly Results & Data Results & Data Vital Signs (Past 12 Hours) Vital Signs Temp Pulse Pulse Resp BP Pulse Ox O2 Del Method 08/05/25 08:22 36.6 C 69 16 151/90 H 91 Room Air 08/05/25 08:04 60 08/04/25 23:46 36.9 C 60 18 153/75 H 93 Room Air 08/04/25 22:17 62 PG Care Time/CCT Total # of Minutes Spent Total Time Spent with Patient: Total time spent is greater than 50% in coordination of care (as documented) at patient's floor/unit and/or counseling patient: Coding Level of Care Code 36022 SUB INP/OBS CARE 2/35MIN Diagnoses Iron deficiency anemia D50.9 Iron deficiency anemia type: unspecified iron deficiency (1) Iron deficiency anemia Iron deficiency anemia type: unspecified iron deficiency Qualified Code(s): D50.9 - Iron deficiency anemia, unspecified
--- NOTE | 2025-08-05 11:59 | Hospitalist Progress Note ---
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 In the ED, H&H was 6.0/22.7, MCV 68, globulin minimally elevated at 4.1, alk phos mildly elevated at 119, iron low at 18. He was referred for admission for further work-up of new anemia and transfusion of PRBCs. New severe iron deficiency anemia - symptomatic Syncopal events Anemia is microcytic with evidence of iron deficiency on labs. His outpatient labs were reviewed including CBCs for the last five years. His hemoglobin on those labs was always above 12 and his MCV was typically in the 90s. No prior severe anemia or microcytosis noted. He notes a change in chronic cough over the last few months as well as new nocturia. History of prostate ca s/p radiation seed implants, successfully treated. 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 He will receive another unit of blood transfusion Possible syncope likely secondary to low hemoglobinno arrhythmias and no ACS suspected Echo of the heart showed EF of 55 to 60%, RV is normal in size and function, mild mitral regurgitation and mildly dilated ascending aorta of 4 cm He has been getting PPI and aspirin has been on hold Will monitor CBC Will check vitamin B12 and folate level and also TIBC and ferritin Will put in GI evaluation tomorrow-Will likely need EGD and colonoscopy down the line and oral iron on discharge ESR seems to be elevated at more than 130 And awaiting further test results including SPEP Remains medically stable for EGD and or colonoscopy this afternoon Remains stable and hemoglobin is stable to without any significant symptoms Has chronic cough without any significant findings on CAT scan of the chesthe will be given albuterol to use as needed Workup for anemia:: Possible multiple myeloma To rule out possible malignancy CT chest/abdomen/pelvis -remained unremarkable SPEP, LDH, PSA, CEA, kappa lambda chains, peripheral smear-these are pending for now ESR remains highly elevated as above in the peripheral blood pressure and showed evidence of iron deficiency on top of leukoerythroblastic changes with rouleaux formation Has sclerotic lesions in the pelvic bone as well Likely has multiple myeloma -awaiting SPEP Will need hematology appointment as soon as possible following discharge Possible chronic blood loss from the GI tract Hemoglobin remains stable following blood transfusion and is 8.7 as of 08/03/2025 EGD showednormal esophagus, multiple fundic gland polyps, normal examination of the duodenum and no specimens collected Colonoscopy [id number] polyp in the descending colon removed with a hot snare, the examined was normal and no other significant finding. #Hypertension - Hold amlodipine for now due to episodes of syncope, symptomatic anemia - Monitor BP closely #Prediabetes - A1c on 07/31/25 was 6.2 #Hypothyroidism - Chronic, stable - continue leveothyroxine #Hypercholesterolemia - Chronic, stable - continue statin Code status: full code DVT prophylaxis: SCDs in view of severe anemia of unclear etiology I spent a total of 35 minutes seeing the patient, examining him, explaining results of investigation and plan of care Admission and Anticipated Discharge Date Admission Date: August 01, 2025 Subjective 08/02/2025 He was admitted with patient with a hemoglobin of 5.7 Complaining of weakness and tiredness but no other significant symptoms Denies any hematemesis and/or melena. Does not remember when he was his endoscopies done Denies any chest pain, palpitation or shortness of breath, no abdominal pain nausea no vomiting 08/03/2025 The patient was seen and examined in medical telemetry unit He has been stable and denies any significant symptoms He was seen by the linter drier operator and will have endoscopies planned for tomorrow 08/04/2025 The patient was seen and examined in medical telemetry unit He remains stable without any significant symptoms Cough is better Awaiting endoscopies this afternoon 08/05/2025 The patient was seen and examined in medical telemetry unit He is a status post negative EGD and colonoscopy for any acute GI bleed He has been feeling much better and will be discharged home this afternoon Review of Systems Review of Systems: All systems reviewed and are unremarkable except as noted below Physical Exam Physical Exam: Lying in bed without any acute distress Constitutional: average body habitus; not ill appearing Eyes: PERRL, conjunctivae normal, anicteric sclerae ENMT: external ear and nose normal, oropharynx normal Neck: trachea midline, no thyromegaly Respiratory: no respiratory distress Auscultation: lungs clear to auscultation bilaterally Cardiovascular: Rate/Rhythm: regular rate and regular rhythm; not tachycardic Heart Sounds: normal S1 and normal S2; no murmur Extremities: no edema Gastrointestinal (Abdomen): Inspection/Auscultation: normal bowel sounds; abdomen not distended Percussion/Palpation: abdomen soft; abdomen nontender Neurologic: normal touch/pain/proprioception and moves all extremities; no focal motor deficits Psychiatric: A+Ox3, euthymic affect Lymphatic: no cervical or axillary lymphadenopathy Results & Data Results & Data Vital Signs (Past 12 Hours) Vital Signs Temp Pulse Pulse Resp BP Pulse Ox O2 Del Method 08/05/25 08:22 36.6 C 69 16 151/90 H 91 Room Air 08/05/25 08:04 60 Medications Administered Current Inpatient Medications Acetaminophen (Acetaminophen 325 Mg Tab) 650 mg PO Q4H PRN PRN Reason: Pain or Fever Stop: 08/31/25 16:31 Last Admin: 08/02/25 10:03 Dose: 650 mg Atorvastatin Calcium (Atorvastatin 20 Mg Tab) 20 mg PO DAILY [facility] Stop: 09/01/25 08:59 Last Admin: 08/05/25 09:50 Dose: 20 mg Famotidine (Famotidine 20 Mg Tab) 20 mg PO DAILY [facility] Stop: 09/01/25 08:59 Last Admin: 08/05/25 09:50 Dose: 20 mg Fexofenadine HCl (Fexofenadine Hcl 180 Mg Tab) 180 mg PO DAILY [facility] Stop: 09/01/25 08:59 Last Admin: 08/05/25 09:50 Dose: 180 mg Guaifenesin/Dextromethorphan (Guaifenesin/Dextrom Syrup 200mg/20mg 10ml Udc) 10 ml PO Q6H PRN PRN Reason: Cough Stop: 09/02/25 09:12 Last Admin: 08/04/25 08:43 Dose: 10 ml Levothyroxine Sodium (Levothyroxine Sodium 88 Mcg Tablet) 88 mcg PO DAILYBB [facility] Stop: 09/01/25 06:29 Last Admin: 08/05/25 05:47 Dose: 88 mcg Pantoprazole Sodium (Pantoprazole 40 Mg Tab) 40 mg PO QAM [facility] Stop: 09/01/25 08:59 Last Admin: 08/05/25 09:51 Dose: 40 mg (1) Iron deficiency anemia Iron deficiency anemia type: unspecified iron deficiency Qualified Code(s): D50.9 - Iron deficiency anemia, unspecified (2) Syncope Syncope type: unspecified Qualified Code(s): R55 - Syncope and collapse
[2025-08-05 14:04] VITALS: BP 164/84
[2025-08-05] MEDS ORDERED: FERROUS SULFATE 325 MG TAB PO SCH (17:00)
--- NOTE | 2025-08-06 07:16 | Discharge Summary ---
Date of Service August 06, 2025 Admission HPI Per Admitting Provider This is a 75 y/o male with hx of prostate cancer, HTN, prediabetes, pure hypercholesterolemia, hypothyroidism, and other history as outlined below who presented to the ED today after outpatient labs revealed profound anemia with an outpatient hemoglobin of 5.7. Pt was originially seen in March 2025 for two episodes of near-syncope. Provider ordered labs, ZIO, ECHO but it appears only the ZIO was done, which showed predominantly sinus rhythm with a few runs of SVT. Pt declined cardio eval at the time. Seen again on 07/17/25 for ongoing intermittent dizziness, at which labs were ordered which patient finally had done yesterday. Pt denies a prior history of anemia or prior blood transfusion. He describes increasing frequency of dizziness with additional syncopal episodes at home. He notes new and progressive dyspnea on exertion, now gets short of breath walking up the stairs. He feels generally weak and tired all the time. His appetite is fair but this is unchanged from baseline, typically only eats one meal a day (dinner) which he goes out to eat for. During the day, he snacks, usually on Ritz crackers. He denies dysphagia, N/V, change in bowel habits, melena or hematochezia. He denies chest pain, palpitations, or peripheral edema. He notes a chronic cough for the last five years for which he has been seen outpatient, diagnosed with allergies. However, cough has worsened over the last few months, becoming more severe and productive at times. 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 Colonoscopy 12/21/22 - fair preparation, normal examined colon on direct and retroflexion views EGD 12/21/22 - normal esophagus, no stricture; small hiatal hernia, multiple gastric benign fundic gland polyps, normal examined duodenum Admission Exam Per Admitting Provider Physical Exam: General: awake, alert, NAD HEENT: no scleral icterus, moist oral mucosa Neck: supple, trachea midline Heart: RRR Lungs: CTA bilaterally, no W/R/R Abdomen: soft, NT, +BS Extremities: radial pulses 2+ and equal, capillary refill 3 seconds Skin: warm, dry, mild pallor Neurologic: Ox3, no confusion or dysarthria, moving all extremities, no focal deficits Principal Diagnosis Severe iron deficiency anemia,negative EGD and colonoscopy, possible multiple myeloma Discharge Exam Lying in bed without any acute distress Constitutional average body habitus; not ill appearing Eyes PERRL, conjunctivae normal, anicteric sclerae ENMT external ear and nose normal, oropharynx normal Neck trachea midline, no thyromegaly Respiratory no respiratory distress Auscultation: lungs clear to auscultation bilaterally Cardiovascular Rate/Rhythm: regular rate and regular rhythm; not tachycardic Heart Sounds: normal S1 and normal S2; no murmur Extremities: no edema Gastrointestinal (Abdomen) Inspection/Auscultation: normal bowel sounds; abdomen not distended Percussion/Palpation: abdomen soft; abdomen nontender Neurologic normal touch/pain/proprioception and moves all extremities; no focal motor deficits Psychiatric A+Ox3, euthymic affect Lymphatic no cervical or axillary lymphadenopathy Discharge Data Allergies Allergy/AdvReac Type Severity Reaction Status Date / Time No Known Allergies Allergy Unverified 11/18/15 09:18 Consultations 08/01/25 12:39 ED Decision to Admit Stat 08/03/25 08:05 Consult Gastroenterology Routine Procedures Performed Operation Date: 08/04/25 17:00 Actual Procedures p Esophagogastroduodenoscopy - Rodrick Gaspar MD s Colonoscopy Polypectomy - Rodrick Gaspar MD Ordered Studies 08/01/25 14:03 CT abd pelvis IV con only Routine CT chest diagnostic w con Routine Hospital Course (1) Iron deficiency anemia: (2) Syncope: (3) Acquired hypothyroidism: (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 In the ED, H&H was 6.0/22.7, MCV 68, globulin minimally elevated at 4.1, alk phos mildly elevated at 119, iron low at 18. He was referred for admission for further work-up of new anemia and transfusion of PRBCs. New severe iron deficiency anemia - symptomatic Syncopal events Anemia is microcytic with evidence of iron deficiency on labs. His outpatient labs were reviewed including CBCs for the last five years. His hemoglobin on those labs was always above 12 and his MCV was typically in the 90s. No prior severe anemia or microcytosis noted. He notes a change in chronic cough over the last few months as well as new nocturia. History of prostate ca s/p radiation seed implants, successfully treated. 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 He will receive another unit of blood transfusion Possible syncope likely secondary to low hemoglobinno arrhythmias and no ACS suspected Echo of the heart showed EF of 55 to 60%, RV is normal in size and function, mild mitral regurgitation and mildly dilated ascending aorta of 4 cm He has been getting PPI and aspirin has been on hold Will monitor CBC Will check vitamin B12 and folate level and also TIBC and ferritin Will put in GI evaluation tomorrow-Will likely need EGD and colonoscopy down the line and oral iron on discharge ESR seems to be elevated at more than 130 And awaiting further test results including SPEP Remains medically stable for EGD and or colonoscopy this afternoon Remains stable and hemoglobin is stable to without any significant symptoms Has chronic cough without any significant findings on CAT scan of the chesthe will be given albuterol to use as needed Workup for anemia:: Possible multiple myeloma To rule out possible malignancy CT chest/abdomen/pelvis -remained unremarkable SPEP, LDH, PSA, CEA, kappa lambda chains, peripheral smear-these are pending for now ESR remains highly elevated as above in the peripheral blood pressure and showed evidence of iron deficiency on top of leukoerythroblastic changes with rouleaux formation Has sclerotic lesions in the pelvic bone as well Likely has multiple myeloma -awaiting SPEP Will need hematology appointment as soon as possible following discharge Possible chronic blood loss from the GI tract Hemoglobin remains stable following blood transfusion and is 8.7 as of 08/03/2025 EGD showednormal esophagus, multiple fundic gland polyps, normal examination of the duodenum and no specimens collected Colonoscopy [id number] polyp in the descending colon removed with a hot snare, the examined was normal and no other significant finding. #Hypertension - Hold amlodipine for now due to episodes of syncope, symptomatic anemia - Monitor BP closely #Prediabetes - A1c on 07/31/25 was 6.2 #Hypothyroidism - Chronic, stable - continue leveothyroxine #Hypercholesterolemia - Chronic, stable - continue statin Code status: full code DVT prophylaxis: SCDs in view of severe anemia of unclear etiology I spent a total of 35 minutes seeing the patient, examining him, explaining results of investigation and plan of care Total Time Total Time Spent Total Time Spent (In Minutes): 40 Minutes Discharge Plan Discharge Items Patient Disposition: Home - Self-Care Reason For Visit: SEVERE ANEMIA Discharge Diagnosis: Severe iron deficiency anemia,negative EGD and colonoscopy, possible multiple my eloma Condition on Discharge: Fair Activity: Resume your previous activity Non-emergency contact: Primary Care Provider Call non-emergency contact if: you have any medication questions and your symptoms worsen Follow-up/Referrals: Armando Tinoco MD [Primary Care Provider] - (Date & Time 08/10/2025 3:20 PM Provider: Armando Tinoco MD [facility], [place] ) Diet: Regular Addtl Attending Provider Instructions: Please take precautions to avoid falls Please take your medications as advised Keep your appointment with your healthcare providers and need to see a electronic maintenance supervisor as soon as possible Pending Studies at Discharge: Yes Studies:: SPEP Stand-Alone Forms: My [employer], Smoking Cessation Medications and DC Order Prescriptions: New albuterol sulfate 90 mcg/actuation HFA aerosol inhaler 2 inh inhalation Q6H PRN (Reason: cough ) Qty: 8.5 0RF ferrous sulfate [Feosol] 325 mg (65 mg iron) tablet 325 mg PO BID Qty: 60 0RF Continued atorvastatin 20 mg tablet 20 mg PO DAILY amlodipine 2.5 mg tablet 2.5 mg PO DAILY omeprazole 40 mg capsule,delayed release(DR/EC) 40 mg PO DAILY levothyroxine 88 mcg tablet 88 mcg PO DAILY famotidine 20 mg tablet 20 mg PO DAILY aspirin 81 mg Tablet,Delayed Release (Dr/Ec) 81 mg PO DAILY fexofenadine 180 mg Tablet 180 mg PO DAILY Discharge Orders: Discharge Order (Routine); Ordered 08/05/25 Ordered By: Mckinley Louise Admission Data Admit Date/Time: 08/01/25 14:09 Attending Provider: Mckinley Louise Admit Provider: Zeke Toussaint Primary Care Provider: Armando Tinoco Other Providers: Zeke Toussaint; Omar Rebollar; Shashank Gallardo; Cynthia Hayes; Giselle Hampton; Savannah Guzman; Jayne Hay; Justo Green; Louisa Jones; Lotus Quigley; Sumit Carrion; Donna Sanches; Wendy Xavier; Marisol Martinez; Fahad Alva; Fracisco Paniagua; Boston Carpenter; Cydney Lugo; Kathy Gaffney Jr; Roscoe Peters; Elias Grant; Atilio Andrade; Kathryn Diaz; Rodrick Gaspar I; Shirley Tinajero; Denilson Gee; Joss Montalvo; Jorge Luis Berumen; Joseluis Rios; Cata Kendall Other Interventions: Discharge Summary Assessment (RN) Last Done: 08/05/25 14:03
[2025-08-07 07:01] LABS: Albumin 3.8 g/dL (3.8-4.8); Beta-1-Globulin 0.4 g/dL (0.4-0.6); Gamma Globulin 2.0 g/dL (0.8-1.7); Kappa 359 mg/dL (176-443); Lambda 45 mg/dL (91-240); Total Protein 7.9 g/dL (6.1-8.1)
== END 2025-08-05 14:39 | disposition home or self-care (01) | DRG 812 ==
LOC: ED 09:55 → SUATTDRO 14:09 → 2W 14:09